=== PATIENT | female | born 1945 | race Caucasian/White ===

== ENCOUNTER → 2016-07-04 | Outpatient (CLI) | payer BC ==
[~2016-07-04] MED LIST: B-COTAB18 PO; CALC625T PO; CHOL1000 PO; METR1GEL3 TOP; WARF2TAB PO
== END | disposition home or self-care (01) ==
LOC: C.RDSM 15:50
PROVIDERS: ATTEND Physical Medicine & Rehabilitation Sports Medicine
DX: Z96.651 Presence of right artificial knee joint (principal)

== ENCOUNTER → 2016-12-11 | Outpatient (CLI) | payer BC ==
--- NOTE | 2016-12-11 15:43 | MAMMOGRAPHY REPORT ---
BILATERAL DIGITAL SCREENING MAMMOGRAM WITH CAD: 12/11/2016 CLINICAL HISTORY: Routine screening examination. TECHNIQUE: Bilateral CC and MLO views were obtained. Current study was also evaluated with a Compute r Aided Detection (CAD) system. COMPARISON: Comparison is made to exams dated: 11/03/2015 mammogram, 10/06/2014 mammogram, 09/16/2013 m ammogram, 09/15/2012 mammogram, 04/01/2012 mammogram, and 08/26/2005 mammogram - [facility] nter. BREAST COMPOSITION: There are scattered areas of fibroglandular density in both breasts. FINDINGS: There is a benign coarse calcification in the left breast. No suspicious mass, architectur al distortion or cluster of microcalcifications is seen. IMPRESSION: ACR BI-RADS CATEGORY 1: NEGATIVE There is no mammographic evidence of malignancy. A 1 year screening mammogram is recommended. The pa tient will receive written notification of the results. Approximately 10% of breast cancers are not detected with mammography. A negative mammographic report should not delay biopsy if a clinically suggestive mass is present. Karolina Molina M.D. ay/:12/11/2016 14:54:11 Aerial Photogrammetrist: Vianey CORDOVA(R)(Sue), [facility] letter sent: Normal 1/2 BI-RADS Code: ACR BI-RADS Category 1: Negative
== END | disposition home or self-care (01) ==
LOC: C.MAMM 09:38
PROVIDERS: ATTEND Family Medicine
DX: Z12.31 Encounter for screening mammogram for malignant neoplasm of breast (principal)

== ENCOUNTER → 2017-05-05 | Outpatient (CLI) | payer BC | END | disposition home or self-care (01) | LOC: C.RDSM 12:11 | PROVIDERS: ATTEND Physical Medicine & Rehabilitation Sports Medicine | DX: Z96.651 Presence of right artificial knee joint (principal); M17.12 Unilateral primary osteoarthritis, left knee ==

== ENCOUNTER → 2017-12-25 | Outpatient (CLI) | payer BC ==
--- NOTE | 2017-12-26 14:35 | MAMMOGRAPHY REPORT ---
BILATERAL DIGITAL SCREENING MAMMOGRAM TOMOSYNTHESIS WITH CAD: 12/25/2017 CLINICAL HISTORY: Routine screening. Patient has no complaints. TECHNIQUE: The study was acquired using full field digital technology and interpreted from soft copy. Breast tomosynthesis in addition to standard 2D mammography was performed. Current study was also ev aluated with a Computer Aided Detection (CAD) system. COMPARISON: Comparison is made to exams dated: 12/11/2016 mammogram, 11/03/2015 mammogram, 10/06/2014 m ammogram, 09/16/2013 mammogram, 04/01/2012 mammogram, and 09/20/2011 ultrasound - [facility]. BREAST COMPOSITION: There are scattered areas of fibroglandular density in both breasts. FINDINGS: No suspicious masses, calcifications, or areas of architectural distortion are noted in either breast . There has been no significant interval change compared to prior exams. IMPRESSION: ACR BI-RADS CATEGORY 1: NEGATIVE There is no mammographic evidence of malignancy. A 1 year screening mammogram is recommended.( 019) The patient will receive written notification of the results. Some breast cancers are not detected with mammography. A negative mammographic report should not dustin y biopsy if a clinically suggestive mass is present. Melanie Willis M.D. ah/:12/25/2017 15:08:20 Bottom Liquor Attendant: Alesia Arzola, [facility] letter sent: Normal 1/2 BI-RADS Code: ACR BI-RADS Category 1: Negative
== END | disposition home or self-care (01) ==
LOC: C.MAMM 08:46
PROVIDERS: ATTEND Family Medicine
DX: Z12.31 Encounter for screening mammogram for malignant neoplasm of breast (principal)

== ENCOUNTER 2018-06-11 06:10 | Inpatient (IN) ==
--- NOTE | 2018-06-01 12:35 | Anesthesiology Consultation ---
Date of Service June 01, 2018 Assessment & Plan (1) Encounter for pre-operative examination: Plan: Preoperative cardiac clearance 05/29/2018: "Based on her functional status without limiting cardiopulmonary symptoms, stable EKG tracing, and the fact that she has had multiple orthopedic surgeries without cardiac complications patient is an acceptable surgical risk to proceed with surgery as scheduled. There is no need for further cardiac workup at this time." PCP Clearance 05/14/18: "Low cardiovascular risk. Will await testing results prior to final clearance." Testing reviewed, final clearance given 06/08/18. Chart Review Chart Review: Acceptable Risk for Surgery and Patient seen in Pre Admission Testing Teaching & Discussion Instructed NPO after midnight before surgery, except medications with 15 cc of water. Medication instructions provided according to the PAT guidelines. History Surgery Operation Date: 06/11/18 12:05 Proposed Procedures p Left Total Knee Arthroplasty - Curt Hall MD Height/Weight Height: 5 ft 5 in Weight: 102.4 kg Allergies Allergy/AdvReac Type Severity Reaction Status Date / Time Sulfa (Sulfonamide Allergy Severe HIVES Verified 05/27/18 08:59 Antibiotics) clavulanic acid Allergy Unknown RASH Verified 05/27/18 08:59 caffeine AdvReac Intermediate PALPITATIONS, Verified 05/27/18 08:59 NUMBNESS IN EXTREMITIES, MIGRANES Medications Home Medications Medication Instructions Recorded Confirmed Last Taken Inhaler 2 puff INHALATION UD PRN 05/27/18 05/27/18 Unknown calcium polycarbophil [FiberCon] 1 tab PO QAM 05/27/18 05/27/18 Unknown cholecalciferol (vitamin D3) 2,000 unit PO QAM 05/27/18 05/27/18 Unknown [Vitamin D3] diclofenac sodium [Voltaren] 2 g TOPICAL QID PRN 05/27/18 05/27/18 Unknown metronidazole [Metrogel Vaginal] 1 appful VAGINAL BID PRN 05/27/18 05/27/18 Unknown vitamin B complex 1 tab PO QAM 05/27/18 05/27/18 Unknown Past Medical History Medical History Asthma RARELY USES INHALER. HAS NOT USED FOR ~ 5 MONTHS. Hypertriglyceridemia Migraine Nausea and vomiting after administration of anesthetic agent single episode, also strong family hx Obesity Osteoarthritis Past Family History Family History Father Family hx of colon cancer Past Surgical History Surgical History H/O hand surgery RIGHT HAND FINGER JOINT REPLACEMENT History of cataract surgery R/L History of hysterectomy TOTAL BSO History of total hip arthroplasty R/L History of total knee replacement RIGHT Past Anesthesia History No Hx of Anesthesia Complications -- Daughter has h/o hallucinations with anesthesia. -- 2015 TKA--SAB AND PNB WITHOUT ANY ISSUES. History of PONV Yes (none iwth R TKA) Motion Sickness Screening History of Motion Sickness: No Social History Smoking Status: Never smoker Do You Dip or Chew Tobacco: No Hx Alcohol Use: Yes Alcohol type: beer and wine alcohol intake frequency: 0-2 drinks per day (up to 2, sometimes none) Hx Substance Use: No Exercise / Class Metabolic Activity III < 4 Walking/Shop/Light housework (no CP or SOB with stairs but very limited activity lately 2/2 knee pain) Review of Systems Pt denies any recent chest pain, shortness of breath, palpitations, cough, fever or URI. Physical Exam Vital Signs BP: 135/82 (saw cardio 05/29, had similar BP and no changes were made) P: 58bpm SPO2: 97% RA T: 97.7 F R: 18 ENMT Mouth: + dental restorations (crowns/implants on few molars); no chipped teeth and no loose teeth Thyromental Distance: > or= 3.5 Finger Breadths (4) Mallampati Class: I Neck normal visual inspection; neck extension not limited Respiratory normal respiratory effort Auscultation: lungs clear to auscultation bilaterally Cardiovascular Rate/Rhythm: regular rate and regular rhythm Heart Sounds: no murmur Vessels: no carotid bruit Extremities: no edema Testing Electrocardiogram Date: 05/29/18 Findings: + NSR @ (63) Compared to 08/04/15 tracing, PACs are no longer present. Chest X-Ray Date: 06/01/18 Findings: + NAD Laboratory Results 06/01/18 13:13 06/01/18 13:13 Blood Type O Positive 06/01/18 13:13 Antibody Screen NEGATIVE 06/01/18 13:13 PT 10.4 Seconds (9.0-12.0) 06/01/18 13:13 INR 1.0 (0.9-1.1) 06/01/18 13:13 APTT 26.8 Seconds (21.0-31.0) 06/01/18 13:13 Urine Color Yellow 06/01/18 13:13 Urine Appearance Clear (Clear) 06/01/18 13:13 Urine pH 5.5 (4.5-7.5) 06/01/18 13:13 Ur Specific [place] 1.005 (1.000-1.030) 06/01/18 13:13 Urine Protein Negative (Negative) 06/01/18 13:13 Urine Glucose (UA) Negative (Negative) 06/01/18 13:13 Urine Ketones Negative (Negative) 06/01/18 13:13 Urine Nitrite Negative (Negative) 06/01/18 13:13 Ur Leukocyte Esterase Negative (Negative) 06/01/18 13:13 06/01/18 13:13 Urine Culture - Final Urine,Clean Catch More than three types of organisms present, all high counts mixed probable skin antonio - No further identifications or sensitivities to follow.
--- NOTE | 2018-06-01 12:45 | PAT Medication Instructions ---
Medication Instructions Date of Service June 01, 2018 Home Medications Inhaler 2 puff INHALATION UD PRN calcium polycarbophil [FiberCon] 1 tab PO QAM cholecalciferol (vitamin D3) 2,000 unit PO QAM diclofenac sodium [Voltaren] 2 g TOPICAL QID PRN metronidazole [Metrogel Vaginal] 1 appful VAGINAL BID PRN vitamin B complex 1 tab PO QAM STOP taking 24 hours before surgery diclofenac sodium [Voltaren] 2 g TOPICAL QID PRN metronidazole [Metrogel Vaginal] 1 appful VAGINAL BID PRN DO NOT take the morning of surgery calcium polycarbophil [FiberCon] 1 tab PO QAM cholecalciferol (vitamin D3) 2,000 unit PO QAM vitamin B complex 1 tab PO QAM Take morning of surgery With a small sip of water, OTHERWISE NOTHING TO EAT OR DRINK AFTER MIDNIGHT: Inhaler 2 puff INHALATION UD PRN ( (if needed, and bring with you to the hospital) Take evening before surgery Inhaler 2 puff INHALATION UD PRN (if needed) Other Notes If you have any questions please call us at [phone] or [phone] or [phone] or [phone]
--- NOTE | 2018-06-01 13:37 | XRay Report ---
TWO VIEW CHEST CLINICAL HISTORY: Preoperative examination. FINDINGS: PA and lateral chest radiographs are compared to study dated 08/04/2015. The cardiomediastin al silhouette is unremarkable. There is mild bibasilar atelectasis. The lungs and pleural spaces are otherwise clear. There is no pneumothorax. The skeletal structures are osteopenic. Degenerative post e is noted throughout the thoracic spine. The bony thorax appears intact. IMPRESSION: No active disease in the chest. Electronically signed by: Reece Vail M.D. 06/01/2018 1:36 PM
[2018-06-01 13:42] LABS: Basophils # (auto) 0.02 K/uL (0-0.2); Basophils % (auto) 0.3 %; Eosinophils # (auto) 0.12 K/uL (0-0.5); Eosinophils % (auto) 1.8 %; Hematocrit (blood only) 44.4 % (37-47); Hemoglobin 14.1 g/dL (12.0-16.0); Immature Granulocytes # (auto) 0.01 K/uL (0.00-0.02); Immature Granulocytes % (auto) 0.1 %; Lymphocytes # (auto) 2.38 K/uL (1.2-3.4); Lymphocytes % (auto) 35.7 %; Mean Corpuscular Hgb Conc 31.8 g/dL (32-36); Mean Corpuscular Volume 92.3 fL (80-100); Mean Platelet Volume 9.7 fL (7.4-10.4); Monocytes # (auto) 0.41 K/uL (0.11-0.59); Monocytes % (auto) 6.1 %; Neutrophils # (auto) 3.73 K/uL (1.4-6.5); Platelet Count 220 K/uL (130-400); RDW Coefficient of Variation 13.6 % (11.5-14.5); RDW Standard Deviation 45.9 fL (36.4-46.3); Red Blood Count 4.81 M/uL (4.2-5.4); White Blood Count 6.67 K/uL (4.8-10.8)
[2018-06-01 13:51] LABS: Appearance Urine Clear (Clear); Bilirubin Urine Negative (Negative); Color Urine Yellow; Glucose Urine UA Negative (Negative); Ketones Urine Negative (Negative); Leukocyte Esterase Urine Negative (Negative); Nitrite Urine Negative (Negative); Protein Urine Negative (Negative); Specific Gravity Urine 1.005 (1.000-1.030); Urobilinogen Urine Negative (Negative); pH Urine 5.5 (4.5-7.5)
[2018-06-01 13:54] LABS: Partial Thromboplastin Time 26.8 Seconds (21.0-31.0); Prothrombin Time 10.4 Seconds (9.0-12.0)
[2018-06-01 14:36] LABS: BUN Creatinine Ratio 14.7 (10-20); Calcium 8.9 mg/dl (8.5-10.1); Creatinine Clr Calc Pharmacy 66.8 ml/min; Est GFR (African American) 74.5; Est GFR (Non-African American) 64.3; Potassium 3.9 mmol/L (3.5-5.1)
--- NOTE | 2018-06-04 11:22 | History and Physical Report ---
DATE OF ADMISSION: 06/11/2018 DATE OF SURGERY: 06/11/2018. CHIEF COMPLAINT: Left knee pain. HISTORY OF PRESENT ILLNESS: This 72-year-old white female presents to the office with a longstanding history of left knee pain. Pain has become worse with time. It is affecting her ADLs. It is worse with weightbearing. She has tried activity modification as well as oral medication use without improvement. She previously had a right total knee arthroplasty in 2016 and has done well with that. She elects to proceed with the same on the left. No numbness or tingling. Preoperative imaging has been obtained. PAST MEDICAL HISTORY: Significant for obesity, osteoarthritis, migraine headaches, elevated triglycerides, reactive airways disease, and rosacea. PAST SURGICAL HISTORY: Carpal tunnel release, colonoscopy, cataract surgery, abdominal hysterectomy with oophorectomy, right thumb basal joint reconstruction, right knee TKA 08/16/2015, right total hip replacement in 2009, left total hip replacement in 2010. ALLERGIES: KNOWN ALLERGY TO SULFA AND CAFFEINE. AUGMENTIN CAUSES A RASH. She tolerates amoxicillin well. CURRENT MEDICATIONS: Albuterol inhaler 2 puffs q.i.d. p.r.n., multivitamin daily, FiberCon daily, Vitamin D3 daily. SOCIAL HISTORY: The patient is . No tobacco use, daily ETOH use. FAMILY HISTORY: Significant for arthritis, heart disease, cancer, colon cancer, hypertension and osteoarthritis. REVIEW OF SYSTEMS: Total 10 systems were reviewed and are significant only for above stated conditions. PHYSICAL EXAMINATION: GENERAL: Well-developed, well-nourished elderly white female in no acute distress. Sitting in a chair. Alert and oriented. SKIN: Warm and dry with good turgor. No rashes or lesions. No ecchymosis. Mild rosacea on her face. HEENT: Normocephalic, atraumatic. Eyes PERRLA, EOMI. Nares patent bilaterally without turbinate enlargement. Oropharynx without erythema or exudate. No lesions noted. Uvula midline. Oral mucosa moist. Good dentition. Dental caps are noted. HEART: RRR. No MGR. LUNGS: Clear to auscultation bilaterally. No crackles, rhonchi or wheezing. Good air movement. ABDOMEN: Mildly obese. Bowel sounds present x4, soft, nontender. No organomegaly. No masses. MUSCULOSKELETAL: Left knee evaluation reveals no significant intra-articular effusion. No redness or warmth. She has pain with palpation over the medial and lateral joint lines. Medial was worse. Supple motion of the knee. Full terminal extension. Flexion to greater than 100 degrees. Strength is 5/5 with fair quad tone. Stable collateral ligaments. No defect in the patellar tendon or quadriceps tendon. Ambulatory with an antalgic gait. NEUROLOGIC: Gross sensation is intact across the lower extremities by soft touch. Peripheral pulses are 2+. Cranial nerves II-XII are intact. DATA: Radiographic imaging previously obtained shows end-stage DJD of the left knee. Periarticular osteophytes, subchondral sclerosis, and joint space narrowing are all present. IMPRESSION: Left knee end-stage degenerative joint disease. PLAN: Informed written consent to proceed with total knee arthroplasty will be obtained the morning of surgery. Postoperative prescriptions for Coumadin and Percocet will be provided at discharge from the hospital. Anticipate discharge to home with either outpatient services or home health. The patient states she has a difficult time with lab draws and may do better with a normal lab rather than home health. The patient has already seen her PCP for medical clearance. She also has seen her cardiology group. Preoperative lab work, EKG, and chest x-ray have been ordered. She already has a walker.
[~2018-06-11 06:10] MED LIST changes: -B-COTAB18 PO; -CALC625T PO; +CEFAZOLIN 2000MG 2,000 MG/15 ML SYR IV SCH; -CHOL1000 PO; +LR 60ML/HR IV SCH; -METR1GEL3 TOP; +ROPIVACAINE 0.5% HCL/PF 150 MG, BUPIVACAINE 0.5% MPF 30 ML, EPINEPHrine 0.15 MG, Ketoro... INFIL SCH; +TRANEXAMIC ACID 1,000 MG **IV Pre-op IV SCH; -WARF2TAB PO
--- NOTE | 2018-06-11 06:21 | History & Physical Bridge Note ---
Date of Service June 11, 2018 History & Physical Bridge Note I have examined the patient, reviewed the History & Physical and in the interval since the performance of the History & Physical I have noted the following changes of clinical significance:consent obtained. no changes noted
[2018-06-11] MEDS: LR 500ML BOLUS, THEN 15ML/HR IV SCH ×3 (07:06→17:41)
[2018-06-11] MEDS ORDERED: BUPIVACAINE 0.5 % 5 MG/1 ML PF 10ML VIAL ONE (07:21)
[2018-06-11] MEDS ORDERED: ROPIVACAINE 0.5% 5 MG/ML 30 ML VIAL ONE (07:21)
[2018-06-11] MEDS ORDERED: MIDAZOLAM HCL 1 MG/ML 2ML VIAL ONE ×2 (07:40→09:05)
[2018-06-11] MEDS ORDERED: fentaNYL citrate 100 MCG/2 ML VIAL ONE (07:40)
[2018-06-11] MEDS ORDERED: PROPOFOL IV EMULSION 10 MG/ML 20 ML VIAL IV ONE ×2 (07:45→09:46)
[2018-06-11] MEDS ORDERED: LIDOCAINE HCL 2% 2 ML VIAL/AMP(20MG/ML) INFIL ONE (07:45)
[2018-06-11] MEDS ORDERED: POVIDONE-IODINE OP SOLN 30 ML BTL ONE (08:44)
[2018-06-11] MEDS ORDERED: ORTHO JOINT ANESTHETIC ONE (08:44)
[2018-06-11] MEDS ORDERED: ePHEDrine sulfate 50 MG/ML AMP IV PRN (09:33)
[2018-06-11] MEDS ORDERED: ONDANSETRON INJ 2 MG/ML 2 ML VIAL IV PRN ×2 (09:33→12:34)
[2018-06-11] MEDS ORDERED: fentaNYL citrate 100 MCG/2 ML VIAL IV PRN (09:33)
[2018-06-11] MEDS ORDERED: ATROPINE SULFATE 0.1 MG/ML 10ML SYR IV PRN (09:33)
--- NOTE | 2018-06-11 10:25 | Post Operative Brief Note ---
Immediate Post Op Note v1 Date of Surgery June 11, 2018 Pre & Post Diagnosis Operation Date: 06/11/18 09:05 Pre-Op Diagnosis: Left knee end-stage degenerative joint disease Post-Op Diagnosis: Left knee end-stage degenerative joint disease Procedure Operation Date: 06/11/18 09:05 Actual Procedures p Left Total Knee Arthroplasty(Left) - Curt Hall MD Surgeon Curt Hall MD Manager People [facility] Estimated Blood Loss 75 Findings Consistent with Post-Op Diagnosis
--- NOTE | 2018-06-11 10:48 | Operative Report ---
Post Operative Report Pre & Post Diagnosis Operation Date: 06/11/18 09:05 Pre-Op Diagnosis: Left knee end-stage degenerative joint disease Post-Op Diagnosis: Left knee end-stage degenerative joint disease Procedure Operation Date: 06/11/18 09:05 Actual Procedures p Left Total Knee Arthroplasty(Left) - Curt Hall MD Surgeon LINDA Hall MD Per Diem Clerk semabel Estimated Blood Loss 75 Findings Consistent with Post-Op Diagnosis Specimens See operative report Drains None Complications none Disposition Accompanied Patient To Recovery: Yes Disposition: Recovery Room Indications This 72-year-old white female presented to the office with complaints of intractable left knee pain. She had tried conservative care measures including activity modification, oral anti-inflammatories, injection therapy, and a home exercise program, without lasting relief. She elected to proceed with surgical intervention after being educated about potential risks and outcomes. Preoperative imaging was obtained. Description of Procedure Patient was administered a spinal anesthetic and then taken to the operating room where she was given sedation. She was prepped and draped in the usual sterile fashion. Please see Dr. Hall's operative report for specifics of the procedure. I was present for the entire case from initial patient positioning through final wound closure. Assistance was provided in tissue retraction, hemostasis, trial implant placement, final implant placement, and final wound closure. Patient was taken to the recovery room in satisfactory condition. I attest to the content of the Intraoperative Record and any orders documented therein. Any exceptions are noted below.
--- NOTE | 2018-06-11 10:50 | Operative Report ---
DATE OF OPERATION: 06/11/2018 SURGEON: Curt Hall MD. AUTOMOBILE RACER: Tommy Roa PA-C. No resident or fellow available. PREOPERATIVE DIAGNOSIS: Osteoarthritis with varus fixed flexion deformity, left knee. POSTOPERATIVE DIAGNOSIS: Osteoarthritis with varus fixed flexion deformity, left knee. OPERATION PERFORMED: Cemented left total knee replacement. SUMMARY OF IMPLANTS: Size 3 posterior cruciate substituting femur, size 2-1/2 mobile bearing tray, oval dome 3 peg patella size 41, tibial insert size 3 matching the femur x10 mm thick posterior cruciate substituting, 2 bags of Palacos G cement. ESTIMATED BLOOD LOSS: 75 mL. CRYSTALLOID: Per anesthesia. PATHOLOGY: Pending on bone. PROPHYLAXIS: DVT prophylaxis with Coumadin. PERIOPERATIVE SITUATION: Medically cleared female with intractable knee pain with significant x-ray deformity with varus and flexion deformity, has marked joint space narrowing medially with marked osteophyte formation. DESCRIPTION OF PROCEDURE: Patient was appropriately identified, site verified, consent verified. Antibiotics confirmed as being given. The left lower extremity was prepped and draped in the usual routine fashion. Tourniquet inflated to 300 mmHg after exsanguination of the limb with a rubber Esmarch bandage for a total of approximately 50 minutes. Midline exposure utilized. Parapatellar arthrotomy performed. Synovectomy completed. Osteophytes resected. Soft tissue releases performed. Distal femur resected 14 mm, proximal tibia resected 4 mm, the extension gap was excellent. The femur was sized to between a 4 and a 3, was measured 4, cut 3. There was no notching. The posterior capsule was then injected with 2 syringes of Orthomix. The extension gap was excellent. The flexion gap was excellent. A box cut was then made and the size 3 femur fit well. The tibia was then subluxated and was then broached and reamed for size 2-1/2. A size 3 spacer 10 mm thick allowed full extension, full flexion, and good mid range stability in flexion. Patella tracked well. The patella was resected leaving about 16 mm. A 41 dome fit well. The seating holes made and the trial tracked well. The rest of the Orthomix was then injected about the capsule and the incision. The wound was irrigated with Betadine and Pulsavac. All trial implants were removed prior to this and then the permanent cemented into position. After 12 minutes, the tourniquet deflated. After 14 minutes, the knee flexed. No cement removal was required. The knee was then irrigated with the Pulsavac and Betadine and the permanent liner seated. The knee reduced. Patella tracked well. It was then closed with #2 Vicryl, #1 Vicryl for the capsule layer, 2-0 Vicryl for the subcutaneous layer, and stainless steel clips for skin. Appropriate dressing applied, and patient transferred to recovery room in satisfactory condition having tolerated the procedure well. I attest to the content of the Intraoperative Record and any orders documented therein. Any exception s are noted below.
--- NOTE | 2018-06-11 11:18 | XRay Report ---
XR knee LT 2V routine CLINICAL HISTORY: Degenerative arthritis. Postoperative study. COMPARISON: 02/12/2015 DISCUSSION: There are postsurgical changes of a total left knee arthroplasty and patellar resurfacing . The femoral and tibial components appear well seated. There are overlying skin lolita. There is ai r within soft tissues consistent with recent surgery. IMPRESSION: Postsurgical changes of a total left knee arthroplasty. Electronically signed by: David Valentino M.D. 06/11/2018 11:17 AM
--- NOTE | 2018-06-11 11:23 | Anesthesiology Progress Note ---
Date of Service June 11, 2018 Anesthesia Post Procedure Vital Signs Vital Signs: Temp Pulse Pulse Resp BP Pulse Ox 06/11/18 11:15 58 L 17 123/68 97 06/11/18 11:05 58 L 15 127/67 98 06/11/18 10:55 60 19 133/77 100 06/11/18 10:45 64 20 132/75 100 06/11/18 10:35 68 20 128/71 100 06/11/18 10:29 98.4 F 78 15 112/64 98 06/11/18 06:45 98.2 F 65 20 144/85 H 96 Notes Mental Status: alert / awake / arousable and participated in evaluation Patient Amnestic to Procedure: Yes Nausea / Vomiting: adequately controlled Pain: adequately controlled Airway Patency, RR, SpO2: stable & adequate BP & HR: stable & adequate Hydration State: stable & adequate Neuraxial Anesthesia: was administered and sensory block is resolving Anesthetic Complications: no major complications apparent and Pt Satisfied with anesthetic care
[2018-06-11] MEDS ORDERED: SODIUM CHLORIDE 0.9% 1000ML 1,000 ML IV SCH (12:34)
[2018-06-11] MEDS ORDERED: DiphenhydrAMINE HCL 50 MG/ML VIAL IV PRN (12:34)
[2018-06-11] MEDS ORDERED: HYDROmorphone INJ 0.5 MG/0.5 ML SYR IV PRN (12:34)
[2018-06-11] MEDS ORDERED: BISACODYL 10 MG SUPP PR PRN (12:34)
[2018-06-11] MEDS ORDERED: OXYCODONE HCL IR 5 MG TAB (IMMEDIATE RELEASE) PO PRN (12:34)
[2018-06-11] MEDS ORDERED: METOCLOPRAMIDE HCL INJ 5 MG/ML 2 ML VIAL IV PRN (12:34)
[2018-06-11] MEDS ORDERED: MAGNESIUM HYDROXIDE SUSP 30 ML UDC PO PRN (12:34)
[2018-06-11] MEDS ORDERED: NALOXONE HCL 0.4 MG/1 ML VIAL/CARP IV PRN (12:34)
[2018-06-11] MEDS ORDERED: ALUMINUM/MAGNESIUM SUSP 30 ML UDC PO PRN (12:34)
[2018-06-11] MEDS ORDERED: KETOROLAC TROMETHAMINE 15 MG/ML VIAL IV PRN (12:34)
[2018-06-11] MEDS: ORTHO WARFARIN NOMOGRAM SCH (12:58)
[2018-06-11] MEDS: ACETAMINOPHEN 1,000 MG/100 ML VIAL IV SCH ×2 (13:36→21:49)
--- NOTE | 2018-06-11 13:45 | Progress Note ---
DATE: 06/11/2018 Postop check status post left total knee replacement. Patient is doing well. Denies any chest pain, shortness of breath, fever, chills, nausea, vomiting, headache. Vital signs are stable. She is afebrile. On neurovascular check, is coming back from her block. She is wiggling her toes well. She gets femoral nerve function. She is eating and drinking. Denies any abdominal pain, no nausea or vomiting. Wound dressing clean, dry, and intact. Postop x-rays look excellent. ASSESSMENT: Doing well. Continue with care pathway. Hep-Lock, IV fluid. Mobilize when spinal block worn off.
[2018-06-11] MEDS ORDERED: WARFARIN SOD 5 MG TAB PO ONE (16:00)
[2018-06-11] MEDS ORDERED: TRANEXAMIC ACID 1,000 MG in 0.9 % SODIUM CHLORIDE 100 ML IV SCH (16:30)
[2018-06-11] MEDS: CEFAZOLIN 2000MG 2,000 MG/15 ML SYR IV SCH ×2 (16:48→23:23)
[2018-06-11] MEDS: FERROUS GLUCONATE 324 MG TAB PO SCH (16:51)
[2018-06-11] MEDS: DOCUSATE SODIUM 100 MG CAP PO SCH (20:45)
[2018-06-11] MEDS ORDERED: SENNA 8.6 MG TAB PO SCH (21:00)
[2018-06-12] MEDS: ACETAMINOPHEN 1,000 MG/100 ML VIAL IV SCH (05:37)
[2018-06-12 06:18] LABS: Hematocrit (blood only) 38.7 % (37-47); Hemoglobin 12.6 g/dL (12.0-16.0); Mean Corpuscular Hgb Conc 32.6 g/dL (32-36); Mean Corpuscular Volume 90.8 fL (80-100); Mean Platelet Volume 10.1 fL (7.4-10.4); Platelet Count 186 K/uL (130-400); RDW Coefficient of Variation 13.3 % (11.5-14.5); Red Blood Count 4.26 M/uL (4.2-5.4); White Blood Count 10.65 K/uL (4.8-10.8)
[2018-06-12 06:29] LABS: INR 1.1 (0.9-1.1); Prothrombin Time 10.7 Seconds (9.0-12.0)
[2018-06-12 06:52] LABS: Est GFR (African American) 82.3; Potassium 4.2 mmol/L (3.5-5.1)
[2018-06-12 06:53] LABS: BUN Creatinine Ratio 19.3 (10-20); Calcium 8.4 mg/dl (8.5-10.1); Creatinine Clr Calc Pharmacy 71.9 ml/min
[2018-06-12] MEDS: DOCUSATE SODIUM 100 MG CAP PO SCH (07:21)
[2018-06-12] MEDS: FERROUS GLUCONATE 324 MG TAB PO SCH (07:21)
--- NOTE | 2018-06-12 07:22 | Progress Note ---
DATE: 06/12/2018 SUBJECTIVE: Postop day #1 status post left total knee replacement. The patient is doing well, has no issues. Vital signs are stable. She is afebrile. OBJECTIVE: Neurovascular check femoral sciatic nerve is normal. Wound dressing clean, dry and intact. INR is 1.1. Hematocrit is stable. ASSESSMENT: Doing well. Discharge to home today. Case management involved. Discharge on 4 mg of Coumadin.
[2018-06-12] MEDS ORDERED: dexAMETHasone 10 MG in SYRINGE 0 ML IV SCH (08:00)
[2018-06-12] MEDS: ORTHO WARFARIN NOMOGRAM SCH (08:23)
[2018-06-12] MEDS ORDERED: MULTIVITAMIN TAB PO SCH (09:00)
--- NOTE | 2018-06-12 09:43 | Discharge Summary ---
CHIEF COMPLAINT: Left knee pain. HISTORY OF PRESENT ILLNESS: Admitted for elective left total knee replacement. Hospital course has been uneventful. She is ambulatory, eating, drinking, voiding. PAST MEDICAL HISTORY: Remarkable for osteoarthritis, obesity, migraine headaches, elevated triglycerides, rosacea, reactive airway disease. PAST SURGICAL HISTORY: Remarkable for carpal tunnel, colonoscopy, cataract surgery, hysterectomy, oophorectomy, nasal joint reconstruction, right knee replacement in 2015, right total hip replacement in 2009, left total hip replacement in 2010. ALLERGIES: SULFA AND CAFFEINE. AUGMENTIN CAUSES RASH. PREADMISSION MEDICATIONS: Include albuterol, multivitamin, FiberCon, vitamin D. She will add Coumadin. Keep INR 1.8-2.2 and p.r.n. pain medication. See prescription on pain medication. SOCIAL HISTORY: Reveals she is . No tobacco or alcohol use. FAMILY HISTORY: Noncontributory. Has a history of cancer, hypertension, heart disease. REVIEW OF SYSTEMS: Noncontributory. ASSESSMENT AND PLAN: Doing well, status post left total knee replacement. Discharged home today. Case management involved, 4 mg Coumadin, keep INR 1.8-2.2.
--- NOTE | 2018-06-12 10:06 | Orthopedic Progress Note ---
Date of Service June 12, 2018 Assessment & Plan (1) Status post total left knee replacement: PT/OT this AM Plan on discharge later today Outpatient PT DVT prophylaxis with Coumadin and TEDs Goal INR 1.8-2.2 Ice with EZ wrap Immobilizer for 1st 48 hrs post op WBAT with walker assistance Pain control with PO meds F/u at [facility] in 2 wks for staple removal Subjective Patient is day 1 s/p Left total knee arthroplasty. Doing very well. Ready to be discharged home. Dressing clean, dry and intact. pain well controlled with PO meds. Denies CP, SOB, nausea, vomiting, fever, chills or sweat. Physical Exam 2 Vital Signs (Past 24 Hours): Last Vital Signs Temp 36.5 C 06/12/18 09:55 Pulse 74 06/12/18 09:55 Resp 18 06/12/18 09:55 BP 110/72 06/12/18 09:55 Pulse Ox 95 06/12/18 09:55 Physical Exam: Left Knee: Able to depict light sensation to touch circumferentially around incision. Slight numbness along tibialis anterior distribution. Mild edema. No erythema, ecchymosis, warmth, fluctuance noted. [place] intact w/o drainage. Able to easliy perform SLRT. No referred pain with dorsi/plantar flexion. Calf soft and supple. NV intact in Left LE. Periph pulses easily palpable. Cap refill < 2 seconds.
[2018-06-12] MEDS ORDERED: ACETAMINOPHEN 500 MG TAB PO SCH (14:00)
[2018-06-12] MEDS ORDERED: WARFARIN SOD 5 MG TAB PO SCH ×2 (16:00)
== END 2018-06-12 13:14 | disposition home or self-care (01) | DRG 470 ==
LOC: ASU 06:10 → 3E 10:47

== ENCOUNTER 2023-12-15 15:57 | Observation (INO) ==
[2023-12-15] MEDS: cefTRIAXone SODIUM 2,000 MG/50 ML BAG IV STA (16:08)
--- NOTE | 2023-12-15 16:17 | Emergency Department Note ---
History of Present Illness General Chief Complaint: Referred by Doctor Stated Complaint: ACUTE APPENDICITIS Time Seen by Provider: 12/15/23 16:03 History of Present Illness Provider Complaint: + abnormal lab Returns today for: + called because of abnormal lab/test Description of abnormal result: Abnormal CT abdomen pelvis showing acute appendicitis Context: + called for abnormal lab result Associated symptoms: + fever (Subjective), + chills and + abdominal pain (Began on located in the right lower quadrant) Home Medications Medication Instructions Recorded Confirmed Type calcium polycarbophil 625 mg 1 tab PO QAM 05/27/18 12/15/23 History tablet (FiberCon) cholecalciferol (vitamin D3) 50 2,000 unit PO QAM 05/27/18 12/15/23 History mcg (2,000 unit) capsule (Vitamin D3) vitamin B complex 1 tab PO QAM 05/27/18 12/15/23 History albuterol sulfate 90 mcg/actuation 2 puff inhalation QID PRN 12/15/23 12/15/23 History aerosol inhaler Shortness Of Breath Or Wheezing Allergies Allergy/AdvReac Type Severity Reaction Status Date / Time clavulanic acid Allergy Intermediate RASH Verified 12/15/23 17:09 Sulfa (Sulfonamide Allergy Intermediate HIVES Verified 12/15/23 17:09 Antibiotics) caffeine AdvReac Intermediate PALPITATIONS, Verified 12/15/23 17:09 NUMBNESS IN EXTREMITIES, MIGRANES [id number] Reductase AdvReac Muscle Verified 12/15/23 17:10 Inhibitor aches, rash, cough Past Med/Surg History Problem List (Updated 12/15/23 @ 22:39 by Christian Lauren MD) Acute appendicitis (Acute) 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 HAS NOT USED FOR ~ 5 MONTHS. Surgical History Nausea and vomiting after administration of anesthetic agent single episode, also strong family hx History of cataract surgery R/L History of hysterectomy TOTAL BSO History of total hip arthroplasty R/L History of total knee replacement RIGHT H/O hand surgery RIGHT HAND FINGER JOINT REPLACEMENT Family History Father Family hx of colon cancer Social History Smoking Status: Never smoker Second Hand Exposure: No; Do You Dip or Chew Tobacco: No; Hx Alcohol Use: Yes Alcohol type: beer and wine Hx Substance Use: No Preferred Language: Paraguayan Communication Ability: Effective Visual Impairment: No Limitations Analytics Consultant Required: No Beliefs That Will Affect Care: None marital status: Current Living Situation: Spouse Feels Safe at Home: Yes Assistive Devices: Walker Physical Exam 2 Vital Signs: Vital Signs - 24 hr 12/15/23 16:00 12/15/23 16:51 12/15/23 17:40 Temperature 36.2 C L 36.9 C Temperature Source Temporal Artery Sc an Oral Pulse Rate 75 Pulse Rate [Apical ] 69 Pulse Rhythm Regular Pulse Rhythm [Apic al] Pulse Strength Normal Respiratory Rate 8 L 18 Respiratory Effort / Characteristics Non-Labored Non-Labored Sponta neous Respiratory Depth Normal Normal Respiratory Patter n Regular Regular Blood Pressure 163/111 H Blood Pressure [Le ft Arm] 148/89 H Blood Pressure Pippa n 128 Blood Pressure Pippa n [Left Arm] 108 Blood Pressure Pos ition Sitting Blood Pressure Pos ition [Left Arm] Semi-fowlers Pulse Oximetry 93 96 95 Oxygen Delivery Me thod Room Air Room Air Room Air Oxygen Flow Rate Sepsis Recent Feve r Within 48 Hours No Sepsis New/Unexpla ined Change in Men rojelio Status No Sepsis Action Take n by Nursing No Action Required 12/15/23 19:29 12/15/23 19:35 Temperature 36.1 C L Temperature Source Temporal Artery Sc an Pulse Rate Pulse Rate [Apical ] 67 66 Pulse Rhythm Pulse Rhythm [Apic al] Regular Regular Pulse Strength Respiratory Rate 21 17 Respiratory Effort / Characteristics Non-Labored Sponta neous Non-Labored Sponta neous Respiratory Depth Normal Normal Respiratory Patter n Regular Regular Blood Pressure Blood Pressure [Le ft Arm] 145/75 H 146/95 H Blood Pressure Pippa n Blood Pressure Pippa n [Left Arm] 98 112 Blood Pressure Pos ition Blood Pressure Pos ition [Left Arm] Lying Lying Pulse Oximetry 94 95 Oxygen Delivery Me thod Oxymask Oxymask Oxygen Flow Rate 4 4 Sepsis Recent Feve r Within 48 Hours Sepsis New/Unexpla ined Change in Men rojelio Status Sepsis Action Take n by Nursing Physical Exam: Physical Exam GENERAL: oriented to person, place, and time. appears well-developed and well- nourished. HENT: Exam performed. - Head: Normocephalic and atraumatic. EYES: Conjunctivae and EOM are normal. Right eye exhibits no discharge. Left eye exhibits no discharge. No scleral icterus. NECK: Normal range of motion. Neck supple. No JVD present. CV: Normal rate, regular rhythm, normal heart sounds and intact distal pulses. There is no peripheral edema. Palpable radial pulses bue. PULM/CHEST: Effort normal and breath sounds normal. No respiratory distress. No stridor. no wheezes. no rales. ABD: The abdomen is soft. There is tenderness to palpation of the right lower quadrant. No rebound guarding or rigidity. NEURO: Motor and sensation grossly intact. SKIN: Skin is warm and dry. He is not diaphoretic. PSYCH: normal mood and affect. Behavior is normal. Judgment and thought content normal. Course Course 1603: The patient was evaluated in room C12. A complete history and physical exam was performed Administered Medications Discontinued Medications Bupivacaine HCl/Epinephrine Bitart (Bupivacaine/Epinephrine 0.5% Mpf 1:200,000 30 Ml Vial) Confirm Administered Dose 30 ml .ROUTE .STK-MED ONE Stop: 12/15/23 17:15 Last Admin: 12/15/23 19:06 Dose: 30 ml Documented By: SAMANTHA Ceftriaxone Sodium (Rocephin) 2,000 mg in 50 mls @ 100 mls/hr IV NOW STA Stop: 12/15/23 16:33 Last Infusion: 12/15/23 16:56 Dose: Infused Documented By: Admin: 12/15/23 16:08 Dose: 100 mls/hr Documented By: DONNY Metronidazole (Flagyl) 500 mg in 100 mls @ 100 mls/hr IV NOW STA Stop: 12/15/23 17:03 Last Infusion: 12/15/23 17:52 Dose: Infused Documented By: Admin: 12/15/23 16:38 Dose: 100 mls/hr Documented By: DONNY Piperacillin Sod/Tazobactam (Sod 4.5 gm/ Dextrose) 100 mls @ 200 mls/hr IV NOW ONE; Protocol Stop: 12/15/23 21:14 Last Admin: 12/15/23 21:31 Dose: 200 mls/hr Documented By: BILL Medical Decision Making Medical Records Attestation: I reviewed the patient's medical records. External medical records reviewed. CT of the abdomen pelvis conducted earlier today showed: IMPRESSION: 1. Thickening and an irregular appearance to the tip the appendix with mild periappendiceal fat stranding. These findings are concerning for an early acute appendicitis. Surgical consultation recommended. 2. There is a punctate focus of eccentric gas at the tip the appendix which is likely intraluminal. A small focus of microperforation is considered less likely but not entirely excluded. No evidence for periappendiceal abscess. 3. Cholelithiasis. No gallbladder wall thickening. Laboratory Data Attestation: I reviewed the patient's lab results. 12/15/23 16:52 12/15/23 16:52 Lab Results 12/15/23 Range/Units 16:52 WBC 5.66 (4.8-10.8) K/ul RBC 5.10 (4.20-5.40) M/uL Hgb 14.6 (12.0-16.0) g/dl Hct 45.7 (37.0-47.0) % MCV 89.6 (80.0-100.0) fL MCH 28.6 (25.0-34.0) pg MCHC 31.9 L (32.0-36.0) g/dL RDW Std Deviation 43.3 (36.4-46.3) fL RDW Coeff of Michelle 13.1 (11.5-14.5) % Plt Count 241 (130-400) K/uL MPV 9.4 (9.4-12.4) fL Immature Gran % (Auto) 0.2 % Neut % (Auto) 64.2 % Lymph % (Auto) 24.6 % [place] % (Auto) 8.1 % Eos % (Auto) 2.5 % Baso % (Auto) 0.4 % Neut # (Auto) 3.64 (1.40-6.50) K/uL Lymph # (Auto) 1.39 (1.20-3.40) K/uL [place] # (Auto) 0.46 (0.11-0.59) K/uL Eos # (Auto) 0.14 (0.00-0.50) K/uL Baso # (Auto) 0.02 (0.00-0.20) K/uL Immature Gran # (Auto) 0.01 (0.01-0.20) K/uL PT 10.6 (9.0-12.0) Seconds INR 1.0 (0.9-1.1) APTT 27 (21-31) Seconds PTT Ratio 1.0 Sodium 134 L (136-145) mmol/L Potassium 4.0 (3.5-5.1) mmol/L Chloride 100 (98-107) mmol/L Carbon Dioxide 25 (21-32) mmol/L Anion Gap 9 (3-11) BUN 16 (6-23) mg/dl Creatinine 0.90 (0.6-1.2) mg/dl Est Cr Clr Drug Dosing 56.3 ml/min Est GFR ( Amer) 70.5 ml/min Est GFR (Non-Af Amer) 60.8 ml/min BUN/Creatinine Ratio 17.8 (10-20) Glucose 96 (70-99(Fasting)) mg/dl Calcium 9.3 (8.6-10.3) mg/dl MDM Narrative Cardiac monitoring: An order was placed for continuous cardiac monitoring. The monitor shows a rate of 70 with sinus rhythm interpreted by me External medical records reviewed. CT of the abdomen pelvis conducted earlier today showed: IMPRESSION: 1. Thickening and an irregular appearance to the tip the appendix with mild periappendiceal fat stranding. These findings are concerning for an early acute appendicitis. Surgical consultation recommended. 2. There is a punctate focus of eccentric gas at the tip the appendix which is likely intraluminal. A small focus of microperforation is considered less likely but not entirely excluded. No evidence for periappendiceal abscess. 3. Cholelithiasis. No gallbladder wall thickening. Rocephin and Flagyl ordered for the patient along with basic labs. General surgery was consulted for OR. Impression & Plan Acute appendicitis Discharge Plan Visit Data Chief Complaint: Referred by Doctor Stated Complaint: ACUTE APPENDICITIS ED Provider: Christian Lauren Discharge Problem: Acute appendicitis Patient Disposition: Admitted As Inpatient Discharge Instructions Interventions: ED Discharge Assessment Last Done: 12/15/23 19:52 Discharge Problem: Acute appendicitis Qualifiers: Acute appendicitis type: unspecified acute appendicitis type Qualified Code(s): K35.80 - Unspecified acute appendicitis
[2023-12-15] MEDS: metroNIDAZOLE 500 MG/100 ML BAG IV STA (16:38)
[2023-12-15 17:05] LABS: Basophils # (auto) 0.02 K/uL (0.00-0.20); Basophils % (auto) 0.4 %; Eosinophils # (auto) 0.14 K/uL (0.00-0.50); Eosinophils % (auto) 2.5 %; Hematocrit (blood only) 45.7 % (37.0-47.0); Hemoglobin 14.6 g/dl (12.0-16.0); Immature Granulocytes # (auto) 0.01 K/uL (0.01-0.20); Immature Granulocytes % (auto) 0.2 %; Lymphocytes # (auto) 1.39 K/uL (1.20-3.40); Lymphocytes % (auto) 24.6 %; Mean Corpuscular Hemoglobin 28.6 pg (25.0-34.0); Mean Corpuscular Hgb Conc 31.9 g/dL (32.0-36.0); Mean Corpuscular Volume 89.6 fL (80.0-100.0); Mean Platelet Volume 9.4 fL (9.4-12.4); Monocytes # (auto) 0.46 K/uL (0.11-0.59); Monocytes % (auto) 8.1 %; Neutrophils # (auto) 3.64 K/uL (1.40-6.50); Neutrophils % (auto) 64.2 %; Platelet Count 241 K/uL (130-400); RDW Coefficient of Variation 13.1 % (11.5-14.5); RDW Standard Deviation 43.3 fL (36.4-46.3); White Blood Count 5.66 K/ul (4.8-10.8)
--- NOTE | 2023-12-15 17:10 | Anesthesiology Consultation ---
Date of Service December 15, 2023 Assessment & Plan (1) Encounter for pre-operative examination: Chart Review Chart Review: Acceptable Risk for Surgery and Patient NOT seen in Pre Admission Testing Consults Requested none History Surgery Operation Date: 12/15/23 17:05 Proposed Procedures p Laparoscopic Appendectomy - Richard Lassiter MD Height/Weight Height: 5 ft 5 in Weight: 90.3 kg Allergies Allergy/AdvReac Type Severity Reaction Status Date / Time clavulanic acid Allergy Intermediate RASH Verified 12/15/23 17:09 Sulfa (Sulfonamide Allergy Intermediate HIVES Verified 12/15/23 17:09 Antibiotics) caffeine AdvReac Intermediate PALPITATIONS, Verified 12/15/23 17:09 NUMBNESS IN EXTREMITIES, MIGRANES [id number] Reductase AdvReac Muscle Verified 12/15/23 17:10 Inhibitor aches, rash, cough Medications Home Medications Medication Instructions Recorded Confirmed Last Taken calcium polycarbophil 625 mg 1 tab PO QAM 05/27/18 12/15/23 06/10/18 08:30 tablet (FiberCon) cholecalciferol (vitamin D3) 50 2,000 unit PO QAM 05/27/18 12/15/23 06/10/18 08:30 mcg (2,000 unit) capsule (Vitamin D3) vitamin B complex 1 tab PO QAM 05/27/18 12/15/23 Unknown albuterol sulfate 90 mcg/actuation 2 puff inhalation QID PRN 12/15/23 12/15/23 Unknown aerosol inhaler Shortness Of Breath Or Wheezing Past Medical History Medical History Hypertriglyceridemia Obesity Osteoarthritis Migraine Asthma RARELY USES INHALER. HAS NOT USED FOR ~ 5 MONTHS. Past Family History Family History Father Family hx of colon cancer Past Surgical History Surgical History Nausea and vomiting after administration of anesthetic agent single episode, also strong family hx History of cataract surgery R/L History of hysterectomy TOTAL BSO History of total hip arthroplasty R/L History of total knee replacement RIGHT H/O hand surgery RIGHT HAND FINGER JOINT REPLACEMENT Social History Smoking Status: Never smoker Do You Dip or Chew Tobacco: No Hx Alcohol Use: Yes Alcohol type: beer and wine alcohol intake frequency: 0-2 drinks per day (up to 2, sometimes none) Hx Substance Use: No Physical Exam Vital Signs Last Vital Signs Temp 36.2 C L 12/15/23 16:00 Pulse 75 12/15/23 16:00 Resp 8 L 12/15/23 16:00 BP 163/111 H 12/15/23 16:00 Pulse Ox 96 12/15/23 16:51 O2 Del Method Room Air 12/15/23 16:51 Testing Laboratory Results 12/15/23 16:52 12/15/23 16:52 PT 10.6 Seconds (9.0-12.0) 12/15/23 16:52 INR 1.0 (0.9-1.1) 12/15/23 16:52 APTT 27 Seconds (21-31) 12/15/23 16:52 Electrocardiogram ekg 05/29/2018. nsr. normal tracing. HR 63. Other Testing CT abdomen 12/15/23: IMPRESSION: 1. Thickening and an irregular appearance to the tip the appendix with mild periappendiceal fat stranding. These findings are concerning for an early acute appendicitis. Surgical consultation recommended. 2. There is a punctate focus of eccentric gas at the tip the appendix which is likely intraluminal. A small focus of microperforation is considered less likely but not entirely excluded. No evidence for periappendiceal abscess. 3. Cholelithiasis. No gallbladder wall thickening. 4. Mild hepatic steatosis. 5. Colonic diverticulosis. No evidence for acute diverticulitis. 6. Additional findings as described above.
--- NOTE | 2023-12-15 17:11 | History & Physical Report ---
Date of Service December 15, 2023 Assessment & Plan (1) Acute appendicitis: History of Present Illness Primary Care Provider: Mac Bustos 78-year-old woman presents with severe mid abdominal pain on that lasted for 4 hours. The pain subsided, however she continued to have fevers and chills. She was seen by her primary care doctor today who ordered a CT scan which demonstrated early acute appendicitis. She states she does have some minor pain in her right side currently and her right back. She states she has a high pain tolerance. She has had a prior hysterectomy. She denies taking any blood thinners. Allergies Allergy/AdvReac Type Severity Reaction Status Date / Time clavulanic acid Allergy Intermediate RASH Verified 12/15/23 17:09 Sulfa (Sulfonamide Allergy Intermediate HIVES Verified 12/15/23 17:09 Antibiotics) caffeine AdvReac Intermediate PALPITATIONS, Verified 12/15/23 17:09 NUMBNESS IN EXTREMITIES, MIGRANES [id number] Reductase AdvReac Muscle Verified 12/15/23 17:10 Inhibitor aches, rash, cough Home Medications Medication Instructions Recorded Confirmed Type calcium polycarbophil 625 mg 1 tab PO QAM 05/27/18 12/15/23 History tablet (FiberCon) cholecalciferol (vitamin D3) 50 2,000 unit PO QAM 05/27/18 12/15/23 History mcg (2,000 unit) capsule (Vitamin D3) vitamin B complex 1 tab PO QAM 05/27/18 12/15/23 History albuterol sulfate 90 mcg/actuation 2 puff inhalation QID PRN 12/15/23 12/15/23 History aerosol inhaler Shortness Of Breath Or Wheezing Past Med/Surg History Problem List (Updated 12/15/23 @ 17:12 by Richard Lassiter MD) Acute appendicitis 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 HAS NOT USED FOR ~ 5 MONTHS. Surgical History Nausea and vomiting after administration of anesthetic agent single episode, also strong family hx History of cataract surgery R/L History of hysterectomy TOTAL BSO History of total hip arthroplasty R/L History of total knee replacement RIGHT H/O hand surgery RIGHT HAND FINGER JOINT REPLACEMENT Family History Father Family hx of colon cancer Social History Smoking Status: Never smoker Second Hand Exposure: No; Do You Dip or Chew Tobacco: No; Hx Alcohol Use: Yes Alcohol type: beer and wine Hx Substance Use: No Preferred Language: Afghan Communication Ability: Effective Visual Impairment: No Limitations Supervisor Dry Cleaning Required: No Beliefs That Will Affect Care: None marital status: Current Living Situation: Spouse Feels Safe at Home: Yes Assistive Devices: Walker Review of Systems Review of Systems: All systems reviewed & are unremarkable except as noted in HPI & below Physical Exam Constitutional: WD/WN, vitals as above Eyes: PERRL, conjunctivae normal, anicteric sclerae Neck: trachea midline, no thyromegaly Respiratory: normal respiratory effort, lungs clear to auscultation Cardiovascular: RRR, no murmur, no edema Gastrointestinal (Abdomen): Inspection/Auscultation: abdomen normal to inspection; abdomen not distended Percussion/Palpation: + abdomen tender ( RLQ) and abdomen soft; no guarding and abdomen not rigid Skin: no rashes, warm and dry Psychiatric: A+Ox3, euthymic affect Results & Data Results & Data Vital Signs (Past 12 Hours) Vital Signs Temp Pulse Resp BP Pulse Ox O2 Del Method 12/15/23 16:51 96 Room Air 12/15/23 16:00 36.2 C L 75 8 L 163/111 H 93 Room Air Laboratory Results 12/15/23 Range/Units 16:52 WBC 5.66 (4.8-10.8) K/ul RBC 5.10 (4.20-5.40) M/uL Hgb 14.6 (12.0-16.0) g/dl Hct 45.7 (37.0-47.0) % MCV 89.6 (80.0-100.0) fL MCH 28.6 (25.0-34.0) pg MCHC 31.9 L (32.0-36.0) g/dL RDW Std Deviation 43.3 (36.4-46.3) fL RDW Coeff of Michelle 13.1 (11.5-14.5) % Plt Count 241 (130-400) K/uL MPV 9.4 (9.4-12.4) fL Immature Gran % (Auto) 0.2 % Neut % (Auto) 64.2 % Lymph % (Auto) 24.6 % [place] % (Auto) 8.1 % Eos % (Auto) 2.5 % Baso % (Auto) 0.4 % Neut # (Auto) 3.64 (1.40-6.50) K/uL Lymph # (Auto) 1.39 (1.20-3.40) K/uL [place] # (Auto) 0.46 (0.11-0.59) K/uL Eos # (Auto) 0.14 (0.00-0.50) K/uL Baso # (Auto) 0.02 (0.00-0.20) K/uL Immature Gran # (Auto) 0.01 (0.01-0.20) K/uL PT Pending INR Pending APTT Pending PTT Ratio Pending Sodium Pending Potassium Pending Chloride Pending Carbon Dioxide Pending Anion Gap Pending BUN Pending Creatinine Pending Est Cr Clr Drug Dosing Pending Est GFR ( Amer) Pending Est GFR (Non-Af Amer) Pending BUN/Creatinine Ratio Pending Glucose Pending Calcium Pending Diagnostic Findings CT abdomen pelvis wo/w con CT DOSE: 2641.35 mGy.cm CLINICAL HISTORY: SEVERE EPIGASTRIC PAIN TECHNIQUE: Multiaxial CT images of the abdomen and pelvis were performed both before and after the intravenous administration of contrast. A dose lowering technique was utilized adhering to the principles of ALARA. COMPARISON STUDY: Chest CT 04/29/2023. FINDINGS: Stable subcentimeter nodules within the right lower lobe measuring up to 4 mm. The left lung base is clear. Bilateral total hip arthroplasties are noted. No acute fractures. Degenerative changes within the lumbar spine. Multiple small gallstones. No gallbladder wall thickening. Mild hepatic steatosis. No hepatic or splenic masses. The adrenal glands, pancreas, and kidneys are unremarkable. No renal or ureteral stones. No hydronephrosis. Of note, the distal ureters are obscured by the metallic artifact. The main portal vein is patent. Mild calcified plaque within the normal caliber abdominal aorta. No retroperitoneal or pelvic lymphadenopathy. No pelvic free fluid. Prior hysterectomy. The bladder is now well visualized due to metallic artifact. However, no definite bladder wall thickening. Colonic diverticulosis. No evidence for acute diverticulitis. No dilated loops of bowel to suggest an obstruction. There is thickening within the tip the appendix with mild periappendiceal fat stranding. This is best seen on image 179 with the appendix measuring 9 mm in diameter. There is a punctate focus of eccentric gas at the appendix on this image which is likely intraluminal. A tiny focus of microperforation is considered less likely but not entirely excluded. Therefore, these findings likely represent an acute appendicitis. No abscess identified. IMPRESSION: 1. Thickening and an irregular appearance to the tip the appendix with mild periappendiceal fat stranding. These findings are concerning for an early acute appendicitis. Surgical consultation recommended. 2. There is a punctate focus of eccentric gas at the tip the appendix which is likely intraluminal. A small focus of microperforation is considered less likely but not entirely excluded. No evidence for periappendiceal abscess. 3. Cholelithiasis. No gallbladder wall thickening. 4. Mild hepatic steatosis. 5. Colonic diverticulosis. No evidence for acute diverticulitis. 6. Additional findings as described above. 7. This report was called/faxed to the referring physician following dictation. ACT 112: Negative or not required by law. Electronically signed by: Rafa Regalado M.D. 12/15/2023 2:44 PM (1) Acute appendicitis Acute appendicitis type: with localized peritonitis Appendicitis gangrene presence: without gangrene Appendicitis perforation presence: without perforation Appendicitis abscess presence: without abscess Qualified Code(s): K35.30 - Acute appendicitis with localized peritonitis, without perforation or gangrene
[2023-12-15 17:12] LABS: Partial Thromboplastin Time 27 Seconds (21-31); Prothrombin Time 10.6 Seconds (9.0-12.0)
[2023-12-15] MEDS ORDERED: ePHEDrine sulfate 50 MG/ML AMP IV PRN (17:12)
[2023-12-15] MEDS ORDERED: ATROPINE SULFATE 0.1 MG/ML 10ML SYR IV PRN (17:12)
[2023-12-15] MEDS ORDERED: ONDANSETRON INJ 2 MG/ML 2 ML VIAL IV PRN ×2 (17:12→20:40)
[2023-12-15] MEDS ORDERED: fentaNYL citrate PF 100 MCG/2 ML VIAL IV PRN (17:12)
[2023-12-15] MEDS ORDERED: fentaNYL citrate PF 100 MCG/2 ML VIAL ONE (17:17)
[2023-12-15 17:23] LABS: BUN Creatinine Ratio 17.8 (10-20); Calcium 9.3 mg/dl (8.6-10.3); Creatinine Clr Calc Pharmacy 56.3 ml/min; Est GFR (African American) 70.5 ml/min; Est GFR (Non-African American) 60.8 ml/min
[2023-12-15] MEDS ORDERED: MIDAZOLAM HCL 1 MG/ML 2ML VIAL ONE (17:25)
[2023-12-15] MEDS ORDERED: LIDOCAINE 2% 2 ML VIAL/AMP(20MG/ML) INFIL ONE (17:27)
[2023-12-15] MEDS ORDERED: DEXAMETHASONE SOD INJ 4 MG/ML VIAL ONE (17:27)
[2023-12-15] MEDS ORDERED: PROPOFOL IV EMULSION 10 MG/ML 20 ML VIAL IV ONE (17:27)
[2023-12-15] MEDS ORDERED: ONDANSETRON INJ 2 MG/ML 2 ML VIAL ONE (17:27)
[2023-12-15] MEDS ORDERED: ROCURONIUM BROMIDE 10 MG/ML 5 ML VIAL IV ONE (17:27)
[2023-12-15] MEDS ORDERED: ACETAMINOPHEN 1000 MG/100 ML IV IV ONE (17:28)
[2023-12-15] MEDS ORDERED: ePHEDrine sulfate 50 MG/5 ML SYR ONE (18:40)
[2023-12-15] MEDS ORDERED: SUGAMMADEX SODIUM 200 MG/2 ML VIAL IV ONE (19:06)
[2023-12-15] MEDS: BUPIVACAINE/EPINEPHRINE 0.5% MPF 1:200,000 30 ML VIAL ONE (19:06)
--- NOTE | 2023-12-15 19:36 | Post Operative Brief Note ---
Immediate Post Op Note Date of Surgery December 15, 2023 Pre & Post Diagnosis Operation Date: 12/15/23 17:05 Pre-Op Diagnosis: Acute appendicitis Post-Op Diagnosis: Acute appendicitis I identified the patient and participated in the time-out.: Yes Procedure Operation Date: 12/15/23 17:05 Actual Procedures p Laparoscopic Appendectomy(Not Applicable) - Richard Lassiter MD Surgeon Richard Lassiter MD Director Insurance none Estimated Blood Loss 5 Findings Consistent with Post-Op Diagnosis Drains Valentine Catheter (300ml)
--- NOTE | 2023-12-15 19:37 | Operative Report ---
Post Operative Report Pre & Post Diagnosis Operation Date: 12/15/23 17:05 Pre-Op Diagnosis: Acute appendicitis Post-Op Diagnosis: Acute appendicitis I identified the patient and participated in the time-out.: Yes Procedure Operation Date: 12/15/23 17:05 Actual Procedures p Laparoscopic Appendectomy(Not Applicable) - Richard Lassiter MD Surgeon Richard Lassiter MD Veterinary X Ray Operator none Estimated Blood Loss 5 Findings Consistent with Post-Op Diagnosis acute/chronic appendicitis Specimens appendix Drains none Anesthesia Type General Complications none Description of Procedure the patient was taken to the operating room, and placed supine on the operating table. A timeout was performed, perioperative antibiotics were administered, SCD boots were placed. After adequate anesthesia and analgesia was obtained, the abdomen was prepped and draped in the normal sterile fashion. A 1 cm incision was made in the supraumbilical region and carried down to the level of the fascia. A trach hook was used to grasp the fascia and elevated and a varies needle was used to enter the abdominal cavity. The abdomen was insufflated to a pressure of 15 mmHg, and a 5 mm trocar was placed in this location. A 5 mm 30 degree laparoscope was placed into the abdominal cavity, and the abdomen was surveyed. The patient was placed in Trendelenburg and slightly to the left. One 5 mm trocar was placed in the right upper quadrant, and one 12 mm trocar was placed in the left lower quadrant under direct visualization. The right colon was identified and traced down to the cecum. The appendix was identified and elevated anteriorly and medially. A window was created at the base of the appendix with a [place] dissector. The Endo TAHIR stapler was used to transect the appendix at its base through noninflamed tissue, and subsequently the mesoappendix. The appendix was placed in an Endo Catch bag, and removed via the left lower quadrant port site. Attention was turned to hemostasis, which was excellent. The abdomen was copiously irrigated and suctioned free, and again hemostasis was found to be excellent. All trochars removed under direct visualization. The abdomen was desufflated. The fascia in the 12 mm port site was closed with a 0 Vicryl suture. The skin was closed with a running 4-0 Monocryl subcuticular stitch. Dermabond was applied. The patient tolerated the procedure without complication, and was transferred in stable condition to the PACU. All instrument, needle, and sponge counts were correct at the end of the case. I attest to the content of the Intraoperative Record and any orders documented therein. Any exceptions are noted below.
--- NOTE | 2023-12-15 20:16 | Anesthesiology Progress Note ---
Date of Service December 15, 2023 Anesthesia Post Procedure Vital Signs Vital Signs: Temp Pulse Pulse Resp BP BP Pulse Ox 12/15/23 20:10 60 16 149/72 H 95 12/15/23 19:55 36.4 C L 61 20 147/68 H 95 12/15/23 19:45 65 19 145/74 H 93 12/15/23 19:35 66 17 146/95 H 95 12/15/23 19:29 36.1 C L 67 21 145/75 H 94 12/15/23 17:40 36.9 C 69 18 148/89 H 95 12/15/23 16:51 96 12/15/23 16:00 36.2 C L 75 8 L 163/111 H 93 O2 Del Method O2 Flow Rate 12/15/23 20:10 Nasal Cannula 2 12/15/23 19:55 Nasal Cannula 2 12/15/23 19:45 Oxymask 2 12/15/23 19:35 Oxymask 4 12/15/23 19:29 Oxymask 4 12/15/23 17:40 Room Air 12/15/23 16:51 Room Air 12/15/23 16:00 Room Air Pain Intensity Abdomen: Pain Intensity: 2 Transfer of Care Handoff Completed per policy Notes Mental Status: alert / awake / arousable and participated in evaluation Patient Amnestic to Procedure: Yes Nausea / Vomiting: adequately controlled Pain: adequately controlled Airway Patency, RR, SpO2: stable & adequate BP & HR: stable & adequate Hydration State: stable & adequate Anesthetic Complications: no major complications apparent and Pt Satisfied with anesthetic care
[2023-12-15] MEDS ORDERED: oxyCODONE/ACETAMINOPHEN 5mg/325mg TAB PO PRN ×2 (20:40)
[2023-12-15] MEDS ORDERED: PROMETHAZINE HCL 12.5 MG in SODIUM CHLORIDE 0.9% 50 ML IV PRN (20:40)
[2023-12-15] MEDS ORDERED: diphenhydrAMINE Capsule 25 MG CAP PO PRN (20:40)
[2023-12-15] MEDS ORDERED: KETOROLAC TROMETHAMINE 15 MG/ML VIAL IV PRN (20:40)
[2023-12-15] MEDS ORDERED: MoRPHine SULFATE 2 MG/ML CARP IV PRN (20:40)
[2023-12-15] MEDS: PIPER/TAZO 4.5g in D5W MINI-B 100 ML IV ONE (21:31)
[2023-12-15] MEDS: FAMOTIDINE/PF 20 MG/2 ML VIAL IV ONE (22:53)
[2023-12-16] MEDS: PIPERACILLIN/TAZOBACTAM 4.5 GM in DEXTROSE 5% MINI-B 100 ML IV SCH (03:23)
[2023-12-16] MEDS: ENOXAPARIN INJ 30 MG/0.3 ML SYR SQ SCH (08:46)
--- NOTE | 2023-12-16 09:16 | Discharge Summary ---
Date of Service December 16, 2023 Admission HPI Per Admitting Provider 78-year-old woman presents with severe mid abdominal pain on that lasted for 4 hours. The pain subsided, however she continued to have fevers and chills. She was seen by her primary care doctor today who ordered a CT scan which demonstrated early acute appendicitis. She states she does have some minor pain in her right side currently and her right back. She states she has a high pain tolerance. She has had a prior hysterectomy. She denies taking any blood thinners. Principal Diagnosis acute appendicitis Discharge Exam Constitutional WD/WN, vitals as above + obese, cooperative and comfortable; no acute distress and not ill appearing Respiratory normal respiratory effort; no respiratory distress and no labored breathing Gastrointestinal (Abdomen) Inspection/Auscultation: abdomen normal to inspection and + abdominal surgical incision (c/d/i with dermabond mild ecchymosis); abdomen not distended Percussion/Palpation: + abdomen tender (mild to moderate in RLQ) and abdomen soft; no guarding and abdomen not rigid Skin no rashes, warm and dry Psychiatric A+Ox3, euthymic affect Discharge Data Allergies Allergy/AdvReac Type Severity Reaction Status Date / Time clavulanic acid Allergy Intermediate RASH Verified 12/15/23 17:09 Sulfa (Sulfonamide Allergy Intermediate HIVES Verified 12/15/23 17:09 Antibiotics) caffeine AdvReac Intermediate PALPITATIONS, Verified 12/15/23 17:09 NUMBNESS IN EXTREMITIES, MIGRANES [id number] Reductase AdvReac Muscle Verified 12/15/23 17:10 Inhibitor aches, rash, cough Consultations 12/15/23 16:12 ED Decision to Admit Stat Procedures Performed Operation Date: 12/15/23 17:05 Actual Procedures p Laparoscopic Appendectomy(Not Applicable) - Richard Lassiter MD Hospital Course (1) Acute appendicitis: Patient taken to operating room for laparoscopic appendectomy from emergency department by Dr. Richard Lassiter on 12/15/23. Patient found to have appendicitis without perforation or rupture. There was significant inflammation,likely acute on chronic appendicitis. Patient tolerated procedure without difficulty and transferred to medical/surgical floor for postoperative care. Diet advanced as tolerated, activity as tolerated, and pain management as needed. Patient was doing well on POD # 1 tolerating advanced diet and pain minimal without needing narcotics Patient was discharged home on POD # 1 in stable condition with 5 days of cipro and flagyl. Total Time Total Time Spent Total Time Spent (In Minutes): 30 Total Time Includes: Examination of the Patient, Discharge Planning and Medication Reconciliation Discharge Plan Discharge Items Patient Disposition: Home - Self-Care Reason For Visit: ACUTE APPENDICITIS Discharge Diagnosis: acute appendicitis Activity: Per Instructions section Non-emergency contact: Primary Care Provider and Surgeon Call non-emergency contact if: you have any medication questions, your pain is not controlled, your pain is concerning for you, you have a fever, your temperature is above 101, your wound has increased redness, your wound has increased drainage and your wound pain has increased Follow-up/Referrals: Richard Lassiter MD [Physician] - Mac Bustos [Primary Care Provider] - Diet: Regular Addtl Attending Provider Instructions: Post-Surgical ~Discharge Instructions Activity Recommendations: - lifting limitation: (20 pounds for 2 weeks), - exercise/sex/sports limit: (nonstrenuous for 2 weeks), - driving or machine use limit: (none for 1 week or until pain free), - Shower/bathe limit: (may shower, no submerging incisions underwater for 10-14 days) Diet: - Resume previous diet SPECIAL CARE INSTRUCTIONS: - May shower, let water run over area and pat dry. - Leave surgical glue on incisions, this will fall off on its own - Call the surgeon's office with any questions or concerns - - (ex. temperature higher than 101 degrees F, excessive bleeding or pain) If severe pain or uncontrollable nausea or vomiting go to emergency departement for further evaluation. MEDICATIONS: - Resume previous medications unless instructed otherwise by your surgeon. - May alternate extra strength Tylenol and Ibuprofen as needed for mild to moderate pain -650 mg Tylenol every 6 hours as needed - Ibuprofen 600 mg every 6 hours as needed (take with food) - Take antibiotics for 5 days as prescribed for entire course FOLLOW UP VISIT: - If not already scheduled, please call the office to schedule a two week fo llow-up appointment. Office number Pending Studies at Discharge: Yes (appendix pathology, this will be reviewed at postop visit) Stand-Alone Forms: [email or web address], Smoking Cessation Medications and DC Order Prescriptions: New metronidazole 500 mg tablet 500 mg PO TID Qty: 15 0RF ciprofloxacin HCl [Cipro] 500 mg tablet 500 mg PO BID Qty: 10 0RF Continued vitamin B complex Tablet 1 tab PO QAM cholecalciferol (vitamin D3) [Vitamin D3] 2,000 unit Capsule 2,000 unit PO QAM calcium polycarbophil [FiberCon] 625 mg Tablet 1 tab PO QAM albuterol sulfate 90 mcg/actuation HFA aerosol inhaler 2 puff INHALATION QID PRN (Reason: Shortness Of Breath Or Wheezing) Discharge Orders: Discharge Order (Routine); Ordered 12/16/23 Ordered By: Katherine Whelan Admission Data Admit Date/Time: 12/15/23 19:40 Attending Provider: Richard Lassiter Admit Provider: Richard Lassiter Primary Care Provider: Mac Bustos Other Providers: Richard Lassiter
[2023-12-16 10:50] LABS: Basophils # (auto) 0.01 K/uL (0.00-0.20); Basophils % (auto) 0.1 %; Eosinophils # (auto) 0.01 K/uL (0.00-0.50); Eosinophils % (auto) 0.1 %; Hematocrit (blood only) 41.5 % (37.0-47.0); Hemoglobin 13.5 g/dl (12.0-16.0); Immature Granulocytes # (auto) 0.03 K/uL (0.01-0.20); Immature Granulocytes % (auto) 0.3 %; Lymphocytes # (auto) 1.12 K/uL (1.20-3.40); Lymphocytes % (auto) 9.7 %; Mean Corpuscular Hgb Conc 32.5 g/dL (32.0-36.0); Mean Corpuscular Volume 89.1 fL (80.0-100.0); Mean Platelet Volume 9.7 fL (9.4-12.4); Monocytes # (auto) 0.69 K/uL (0.11-0.59); Neutrophils # (auto) 9.69 K/uL (1.40-6.50); Neutrophils % (auto) 83.8 %; Platelet Count 259 K/uL (130-400); RDW Coefficient of Variation 13.2 % (11.5-14.5); Red Blood Count 4.66 M/uL (4.20-5.40); White Blood Count 11.55 K/ul (4.8-10.8)
== END 2023-12-16 14:21 | disposition home or self-care (01) ==
LOC: ED 15:57 → OR 17:30 → 3E 17:30 → OR 18:40

== ENCOUNTER 2024-02-26 09:31 | Observation (INO) ==
--- NOTE | 2024-02-26 11:13 | Emergency Department Note ---
Impression & Plan Abdominal pain, Nausea & vomiting, Hypomagnesemia, Hyponatremia ED Provider Note ED Provider Note NAME: KILO ESQUEDA AGE:78 SEX: Female : 1945 ARRIVES VIA: Private vehicle INFORMANT: Patient ED PROVIDER(s): Marybeth Cook DO CHIEF COMPLAINT: Abdominal pain, nausea vomiting HPI: This is a 78-year-old female who presents emergency room due to concern for abdominal pain, nausea and vomiting which began on Friday. Patient states that began Friday evening. 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 No radiation into the back. She states she only vomited once, no hematemesis noted. She had subjective fevers and chills and believes she had a low-grade temperature this morning. She did have a bowel movement Friday evening, no BM since. She states she was still passing gas into this morning. She states she has had several prior abdominal surgeries including most recently an appendectomy in December. No recent, URI symptoms. No recent change in medications. No known sick contacts. No change in diet. She states pain is improved laying down. No sense of bloating. PAST MEDICAL HISTORY:See Below PAST SURGICAL HISTORY:See Below FAMILY HISTORY:See Below SOCIAL HISTORY:See Below HOME MEDICATIONS:See Below ALLERGIES:See Below VITALS:See Below PHYSICAL EXAMINATION: GENERAL: alert, well appearing, well nourished, no distress, non-toxic EYE EXAM: normal conjunctiva, PERRL and EOM's grossly intact OROPHARYNX: no exudate, no erythema, lips, buccal mucosa, and tongue normal and mucous membranes are moist NECK: supple, no nuchal rigidity, no adenopathy, non-tender LUNGS: Clear to auscultation. Normal chest wall mechanics, no w/r/r HEART: no murmurs, S1 normal and S2 normal ABDOMEN: abdomen soft, generalized discomfort with palpation across the lower abdomen, right greater than left, normo-active bowel sounds, no masses, no rebound or guarding. BACK: Back is symmetrical on inspection and there is no deformity, no midline tenderness, no CVA tenderness. SKIN: no rashes, petechiae, orbruising UPPER EXTREMITIES: upper extremities are grossly normal. FROM, nml pulses b/l. LOWER EXTREMITIES: No pitting edema. FROM, nml pulses b/l. NEURO EXAM: Normal sensorium, cranial nerves II-XII grossly intact, normal speech, no facial droop,nogross weakness of arms, no gross weakness of legs. Gross sensation intact. No ataxia. Vital Signs: reviewed and remarkable Differential Diagnosis: SBO, colitis, perforation, GI bleed, pancreatitis, mesenteric ischemia, UTI, ureterolithiasis, viral syndrome, dehydration, as well as others were considered MEDICAL DECISION MAKING: This is a 78-year-old female presents to the emergency department due to concern for abdominal pain nausea, and low-grade fever over the last 4 days. Patient was concern for bowel obstruction. Patient was afebrile and hemodynamically stable on arrival. Labs drawn and sent, IV established, EKG performed at bedside interpreted me and patient monitored on telemetry. She was given gentle IV fluids, however declined any additional pain medication. After discussion at bedside of differential diagnosis, patient sent for CT of the abdomen and pelvis. No bowel obstruction noted however mention of inflammation at the mesenteric root, as well as small fluid collection noted in the right lower quadrant. I did inquire of [facility] surg if they thought this could be a stump appendicitis, this was felt to be unlikely. I did discuss the read with the reading radiologist additionally. No known history of GERD, lipase reassuring, unclear etiology. Protonix IV added as a precaution. Patient did report feeling some improvement with IV fluids and repletion of her magnesium. Patient noted to have low sodium, and low magnesium. I suspect this is more likely from decreased oral intake over the last several days due to her symptoms. Through advanced age, leukocytosis, and unclear etiology of CT findings, case discussed with the hospitalist team for additional evaluation and management. Consultation(s): 1720: Discussed with Dr. Steiner, [facility] hospitalist team, for additional evaluation and management. ER Treatment Provided: See below Diagnostics Interpreted By Me: -ECG: Normal sinus at 71, leftward axis, normal intervals, PVC noted, no acute ST/T wave changes -Cardiac Monitoring: An order was placed for continuous cardiac monitoring. The monitor shows a rate of 70 with normal sinus rhythm. -Laboratory studies: As stated above and show below. 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 HAS NOT USED FOR ~ 5 MONTHS. Surgical History (Updated 01/15/24 @ 00:06 by Kenny Polk) Nausea and vomiting after administration of anesthetic agent single episode, also strong family hx History of cataract surgery R/L History of hysterectomy TOTAL BSO History of total hip arthroplasty R/L History of total knee replacement RIGHT H/O hand surgery RIGHT HAND FINGER JOINT REPLACEMENT Family History Father Family hx of colon cancer Social History Smoking Status: Never smoker Second Hand Exposure: No; Do You Dip or Chew Tobacco: No; Hx Alcohol Use: Yes Alcohol type: beer and wine Hx Substance Use: No Preferred Language: Sammarinese Communication Ability: Effective Visual Impairment: No Limitations Stallion Manager Required: No Beliefs That Will Affect Care: None marital status: Current Living Situation: Spouse Other Information That Helps Us Care for You: No Feels Safe at Home: Yes Safety Concerns: Feels Safe At This Time Assistive Devices: None Allergies Allergies Allergy/AdvReac Type Severity Reaction Status Date / Time clavulanic acid Allergy Intermediate RASH Verified 02/26/24 16:11 Sulfa (Sulfonamide Allergy Intermediate HIVES Verified 02/26/24 16:11 Antibiotics) amoxicillin [From Augmentin] Allergy Mild Hives Unverified 02/26/24 16:11 caffeine AdvReac Intermediate PALPITATIONS, Verified 02/26/24 16:11 NUMBNESS IN EXTREMITIES, MIGRANES [id number] Reductase AdvReac Muscle Verified 02/26/24 16:11 Inhibitor aches, rash, cough Home Meds Home Medications Medication Instructions Recorded Confirmed calcium polycarbophil 625 mg 1 tab PO QAM 05/27/18 02/26/24 tablet (FiberCon) cholecalciferol (vitamin D3) 50 2,000 unit PO QAM 05/27/18 02/26/24 mcg (2,000 unit) capsule (Vitamin D3) vitamin B complex 1 tab PO QAM 05/27/18 02/26/24 Results & Data (ED) Vital Signs Vital Signs - 24 hr 02/26/24 09:34 02/26/24 09:44 02/26/24 11:21 Temperature 37.1 C Temperature Source Oral Pulse Rate 69 Pulse Rate [Apical] 63 Pulse Rate from SpO2 Sensor Respiratory Rate 18 20 20 Respiratory Effort / Characteristics Non-Labored Non-Labored Respiratory Depth Normal Normal Blood Pressure 162/73 H Blood Pressure [Left Arm] 148/63 H Blood Pressure Mean 102 Blood Pressure Mean [Left Arm] 91 Blood Pressure Position Sitting Blood Pressure Position [Left Arm] Lying Pulse Oximetry 95 97 Oxygen Delivery Method Room Air Room Air Sepsis Recent Fever Within 48 Hours No Sepsis New/Unexplained Change in Mental Status No Sepsis Action Taken by Nursing No Action Required 02/26/24 11:21 02/26/24 11:21 02/26/24 11:21 Temperature Temperature Source Pulse Rate Pulse Rate [Apical] Pulse Rate from SpO2 Sensor Respiratory Rate Respiratory Effort / Characteristics Respiratory Depth Blood Pressure 148/63 H 148/63 H 148/63 H Blood Pressure [Left Arm] Blood Pressure Mean 111 111 111 Blood Pressure Mean [Left Arm] Blood Pressure Position Blood Pressure Position [Left Arm] Pulse Oximetry Oxygen Delivery Method Sepsis Recent Fever Within 48 Hours Sepsis New/Unexplained Change in Mental Status Sepsis Action Taken by Nursing 02/26/24 11:24 02/26/24 11:30 02/26/24 12:00 Temperature Temperature Source Pulse Rate 64 65 66 Pulse Rate [Apical] Pulse Rate from SpO2 Sensor 66 Respiratory Rate 20 12 6 L Respiratory Effort / Characteristics Respiratory Depth Blood Pressure 148/63 H Blood Pressure [Left Arm] Blood Pressure Mean 91 Blood Pressure Mean [Left Arm] Blood Pressure Position Blood Pressure Position [Left Arm] Pulse Oximetry 95 Oxygen Delivery Method Sepsis Recent Fever Within 48 Hours Sepsis New/Unexplained Change in Mental Status Sepsis Action Taken by Nursing 02/26/24 12:03 02/26/24 12:27 02/26/24 12:27 Temperature Temperature Source Pulse Rate 65 Pulse Rate [Apical] Pulse Rate from SpO2 Sensor 64 Respiratory Rate 12 Respiratory Effort / Characteristics Respiratory Depth Blood Pressure 160/63 H 160/63 H Blood Pressure [Left Arm] Blood Pressure Mean 103 103 Blood Pressure Mean [Left Arm] Blood Pressure Position Blood Pressure Position [Left Arm] Pulse Oximetry 96 Oxygen Delivery Method Sepsis Recent Fever Within 48 Hours Sepsis New/Unexplained Change in Mental Status Sepsis Action Taken by Nursing 02/26/24 12:28 02/26/24 12:30 02/26/24 13:00 Temperature Temperature Source Pulse Rate 67 66 Pulse Rate [Apical] 65 Pulse Rate from SpO2 Sensor 68 65 Respiratory Rate 16 12 19 Respiratory Effort / Characteristics Non-Labored Respiratory Depth Normal Blood Pressure Blood Pressure [Left Arm] 160/63 H Blood Pressure Mean Blood Pressure Mean [Left Arm] 95 Blood Pressure Position Blood Pressure Position [Left Arm] Pulse Oximetry 95 95 96 Oxygen Delivery Method Room Air Sepsis Recent Fever Within 48 Hours Sepsis New/Unexplained Change in Mental Status Sepsis Action Taken by Nursing 02/26/24 13:03 02/26/24 13:30 02/26/24 14:00 Temperature Temperature Source Pulse Rate 62 90 Pulse Rate [Apical] 61 Pulse Rate from SpO2 Sensor 66 Respiratory Rate 19 20 Respiratory Effort / Characteristics Non-Labored Respiratory Depth Normal Blood Pressure Blood Pressure [Left Arm] 149/81 H Blood Pressure Mean Blood Pressure Mean [Left Arm] 103 Blood Pressure Position Blood Pressure Position [Left Arm] Sitting Pulse Oximetry 94 95 Oxygen Delivery Method Room Air Sepsis Recent Fever Within 48 Hours Sepsis New/Unexplained Change in Mental Status Sepsis Action Taken by Nursing 02/26/24 14:06 02/26/24 14:06 02/26/24 14:06 Temperature Temperature Source Pulse Rate 66 Pulse Rate [Apical] Pulse Rate from SpO2 Sensor 66 Respiratory Rate 13 Respiratory Effort / Characteristics Respiratory Depth Blood Pressure 149/81 H 149/81 H Blood Pressure [Left Arm] Blood Pressure Mean 116 116 Blood Pressure Mean [Left Arm] Blood Pressure Position Blood Pressure Position [Left Arm] Pulse Oximetry 95 Oxygen Delivery Method Sepsis Recent Fever Within 48 Hours Sepsis New/Unexplained Change in Mental Status Sepsis Action Taken by Nursing 02/26/24 14:27 02/26/24 14:30 02/26/24 14:33 Temperature Temperature Source Pulse Rate 70 65 Pulse Rate [Apical] Pulse Rate from SpO2 Sensor 68 66 Respiratory Rate 22 19 Respiratory Effort / Characteristics Respiratory Depth Blood Pressure 159/81 H Blood Pressure [Left Arm] Blood Pressure Mean 91 Blood Pressure Mean [Left Arm] Blood Pressure Position Blood Pressure Position [Left Arm] Pulse Oximetry 93 95 Oxygen Delivery Method Sepsis Recent Fever Within 48 Hours Sepsis New/Unexplained Change in Mental Status Sepsis Action Taken by Nursing 02/26/24 15:00 02/26/24 15:21 02/26/24 15:30 Temperature Temperature Source Pulse Rate 68 65 Pulse Rate [Apical] Pulse Rate from SpO2 Sensor 67 Respiratory Rate 18 18 Respiratory Effort / Characteristics Respiratory Depth Blood Pressure 147/82 H Blood Pressure [Left Arm] Blood Pressure Mean 103 Blood Pressure Mean [Left Arm] Blood Pressure Position Blood Pressure Position [Left Arm] Pulse Oximetry 95 Oxygen Delivery Method Sepsis Recent Fever Within 48 Hours Sepsis New/Unexplained Change in Mental Status Sepsis Action Taken by Nursing 02/26/24 16:48 02/26/24 16:57 02/26/24 17:03 Temperature Temperature Source Pulse Rate 65 66 67 Pulse Rate [Apical] Pulse Rate from SpO2 Sensor Respiratory Rate 19 13 Respiratory Effort / Characteristics Respiratory Depth Blood Pressure Blood Pressure [Left Arm] Blood Pressure Mean Blood Pressure Mean [Left Arm] Blood Pressure Position Blood Pressure Position [Left Arm] Pulse Oximetry Oxygen Delivery Method Sepsis Recent Fever Within 48 Hours Sepsis New/Unexplained Change in Mental Status Sepsis Action Taken by Nursing 02/26/24 17:57 02/26/24 18:24 02/26/24 18:39 Temperature Temperature Source Pulse Rate 63 64 68 Pulse Rate [Apical] Pulse Rate from SpO2 Sensor Respiratory Rate 15 17 21 Respiratory Effort / Characteristics Respiratory Depth Blood Pressure 143/90 H Blood Pressure [Left Arm] Blood Pressure Mean 107 Blood Pressure Mean [Left Arm] Blood Pressure Position Blood Pressure Position [Left Arm] Pulse Oximetry Oxygen Delivery Method Sepsis Recent Fever Within 48 Hours Sepsis New/Unexplained Change in Mental Status Sepsis Action Taken by Nursing Laboratory Data 02/27/24 06:25 02/27/24 06:25 Lab Results 02/26/24 02/26/24 Range/Units 11:01 17:05 WBC 15.49 H (4.8-10.8) K/ul RBC 4.59 (4.20-5.40) M/uL Hgb 13.3 (12.0-16.0) g/dl Hct 40.9 (37.0-47.0) % MCV 89.1 (80.0-100.0) fL MCH 29.0 (25.0-34.0) pg MCHC 32.5 (32.0-36.0) g/dL RDW Std Deviation 41.1 (36.4-46.3) fL RDW Coeff of Michelle 12.6 (11.5-14.5) % Plt Count 222 (130-400) K/uL MPV 9.6 (9.4-12.4) fL Immature Gran % (Auto) 0.6 % Neut % (Auto) 83.8 % Lymph % (Auto) 9.4 % Thayer % (Auto) 6.0 % Eos % (Auto) 0.1 % Baso % (Auto) 0.1 % Neut # (Auto) 13.00 H (1.40-6.50) K/uL Lymph # (Auto) 1.45 (1.20-3.40) K/uL Thayer # (Auto) 0.93 H (0.11-0.59) K/uL Eos # (Auto) 0.01 (0.00-0.50) K/uL Baso # (Auto) 0.01 (0.00-0.20) K/uL Immature Gran # (Auto) 0.09 (0.01-0.20) K/uL PT 11.2 (9.0-12.0) Seconds INR 1.0 (0.9-1.1) Sodium 128 L (136-145) mmol/L Potassium 3.8 (3.5-5.1) mmol/L Chloride 94 L (98-107) mmol/L Carbon Dioxide 28 (21-32) mmol/L Anion Gap 6 (3-11) BUN 12 (6-23) mg/dl Creatinine 0.65 (0.6-1.2) mg/dl Est Cr Clr Drug Dosing 84.0 ml/min eGFR 89.51 BUN/Creatinine Ratio 18.5 (10-20) Glucose 125 H (70-99(Fasting)) mg/dl Lactate 1.1 (0.4-2.0) mmol/L Calcium 8.8 (8.6-10.3) mg/dl Magnesium 1.5 L (1.7-2.4) mg/dl Total Bilirubin 1.1 H (0.2-1.0) mg/dl AST 23 (13-39) U/L ALT 52 (7-52) U/L Alkaline Phosphatase 60 (34-104) U/L Troponin I High Sens 8.9 (0-14) pg/ml Total Protein 7.1 (6.0-8.3) gm/dl Albumin 3.7 (3.4-5.0) gm/dl Globulin 3.4 (2.5-4.0) gm/dl Albumin/Globulin Ratio 1.1 (0.9-2) Lipase 26 (11-82) U/L Procalcitonin 0.02 (0-0.5) ng/ml Administered Medications Sodium Chloride (Nss) 1,000 mls @ 100 mls/hr IV .Q10H PRINCESS Stop: 03/27/24 19:44 Last Admin: 02/27/24 08:10 Dose: 100 mls/hr Documented By: Infusion: 02/27/24 08:06 Dose: Infused Documented By: Admin: 02/26/24 21:56 Dose: 100 mls/hr Documented By: ALEKSANDR Pantoprazole Sodium 40 mg/ (Syringe) 10 mls @ 5 mls/min IV BID PRINCESS Stop: 03/28/24 08:59 Last Admin: 02/27/24 08:17 Dose: 5 mls/min Documented By: SHADI Magnesium Sulfate/Dextrose (Magnesium Sulfate / D5w) 1 gm in 100 mls @ 50 mls/hr IV ONE ONE Stop: 02/27/24 09:57 Last Admin: 02/27/24 08:13 Dose: 50 mls/hr Documented By: SHADI Discontinued Medications Sodium Chloride (Nss) 1,000 mls @ 125 mls/hr IV .Q8H PRINCESS Stop: 03/27/24 10:44 Last Infusion: 02/26/24 22:35 Dose: Infused Documented By: Admin: 02/26/24 19:21 Dose: 125 mls/hr Documented By: Infusion: 02/26/24 19:20 Dose: Infused Documented By: Admin: 02/26/24 11:20 Dose: 125 mls/hr Documented By: SHAR Magnesium Sulfate/Dextrose (Magnesium Sulfate / D5w) 1 gm in 100 mls @ 100 mls/hr IV NOW STA Stop: 02/26/24 13:17 Last Infusion: 02/26/24 13:44 Dose: Infused Documented By: Admin: 02/26/24 12:35 Dose: 100 mls/hr Documented By: SHAR Pantoprazole Sodium 40 mg/ (Syringe) 10 mls @ 5 mls/min IV NOW ONE Stop: 02/26/24 17:25 Last Admin: 02/26/24 19:22 Dose: 5 mls/min Documented By: LUZ Ioversol (Optiray 320 100ml) 93 ml IV ONCE ONE Stop: 02/26/24 12:14 Last Admin: 02/26/24 12:13 Dose: 93 ml Documented By: [facility] Imaging Data Radiologist's Impression: Abdomen/Pelvis CT 02/26/24 10:[address] WITH IV CONTRAST CT DOSE: 1380.75 mGy.cm HISTORY: Acute onset abdominal pain with nausea and vomiting abd pain, n/v TECHNIQUE: Multiaxial CT images of the abdomen and pelvis were performed following the IV administration of 93 cc of Optiray, A dose lowering technique was utilized adhering to the principles of ALARA. COMPARISON STUDY: CT abdomen and pelvis 12/15/2023; chest CT 04/29/2023 FINDINGS: There are a few solid nodules noted within the right lung base measuring up to 9 mm which are unchanged from prior and of low clinical suspicion. No free air. Unremarkable spleen, pancreas and adrenal glands. Mildly contracted gallbladder with cholelithiasis. The liver is within normal limits. Patency of the hepatic and portal veins. Unremarkable kidneys. No hydronephrosis. Partially decompressed urinary bladder. Atherosclerosis of the aorta without aneurysm. No lymphadenopathy. Small hiatal hernia with distal esophageal wall thickening. There is additional mild circumferential wall thickening involving the third portion of the duodenum. Moderate inflammatory stranding is present within the mesenteric root centered around the patent superior mesenteric artery and third portion of the duodenum. Colonic diverticulosis. Anastomotic suture noted within the abdominal right lower quadrant. There is a 3.4 cm tubular structure within the abdominal right lower quadrant adjacent to the proximal ascending colon on image 210 series 3 measuring 8 mm transversely and appears to be fluid-filled. Unremarkable soft tissues. Bilateral hip arthroplasties. No acute fracture. IMPRESSION: 1. Nonspecific moderate inflammatory stranding within the mesenteric root centered around the patent superior mesenteric artery and third portion duodenum. Differential considerations include a nonspecific duodenitis or mesenteritis. Acute pancreatitis considered less likely. 2. Cholelithiasis without acute cholecystitis. 3. There is a 3 cm tubular fluid-filled structure within the abdominal right lower quadrant which appears similar to the abnormal appendix described on the 12/15/2023 exam. The patient has since undergone an appendectomy. Differential considerations include residual appendix versus small postoperative fluid collection. No drainable fluid collections are present. 4. No bowel obstruction or pneumoperitoneum. ACT 112: Negative or not required by law. The above report was generated using voice recognition software. It may contain grammatical, syntax or spelling errors. Electronically signed by: Leonel Lo M.D. 02/26/2024 1:03 PM Discharge Plan Visit Data Chief Complaint: Abdominal Pain Stated Complaint: ABD PAIN ED Provider: Marybeth Cook Discharge Problem: Abdominal pain, Nausea & vomiting, Hypomagnesemia, Hyponatremia Patient Disposition: Admitted As Inpatient Discharge Instructions Interventions: ED Discharge Assessment Last Done: 02/26/24 21:30
[2024-02-26] MEDS: SODIUM CHLORIDE 0.9% 1,000 ML IV SCH ×2 (11:20→21:56)
[2024-02-26 11:21] LABS: Basophils # (auto) 0.01 K/uL (0.00-0.20); Basophils % (auto) 0.1 %; Eosinophils # (auto) 0.01 K/uL (0.00-0.50); Eosinophils % (auto) 0.1 %; Hematocrit (blood only) 40.9 % (37.0-47.0); Hemoglobin 13.3 g/dl (12.0-16.0); Immature Granulocytes # (auto) 0.09 K/uL (0.01-0.20); Immature Granulocytes % (auto) 0.6 %; Lymphocytes # (auto) 1.45 K/uL (1.20-3.40); Lymphocytes % (auto) 9.4 %; Mean Corpuscular Hgb Conc 32.5 g/dL (32.0-36.0); Mean Corpuscular Volume 89.1 fL (80.0-100.0); Mean Platelet Volume 9.6 fL (9.4-12.4); Monocytes # (auto) 0.93 K/uL (0.11-0.59); Neutrophils % (auto) 83.8 %; Platelet Count 222 K/uL (130-400); RDW Coefficient of Variation 12.6 % (11.5-14.5); RDW Standard Deviation 41.1 fL (36.4-46.3); Red Blood Count 4.59 M/uL (4.20-5.40); White Blood Count 15.49 K/ul (4.8-10.8)
[2024-02-26 11:31] LABS: Albumin Globulin Ratio 1.1 (0.9-2); Albumin Level 3.7 gm/dl (3.4-5.0); BUN Creatinine Ratio 18.5 (10-20); Bilirubin,Total 1.1 mg/dl (0.2-1.0); Calcium 8.8 mg/dl (8.6-10.3); Globulin 3.4 gm/dl (2.5-4.0); Magnesium 1.5 mg/dl (1.7-2.4); Potassium 3.8 mmol/L (3.5-5.1); Total Protein 7.1 gm/dl (6.0-8.3)
[2024-02-26 11:38] LABS: Troponin I High Sensitivity 8.9 pg/ml (0-14)
[2024-02-26 11:42] LABS: Prothrombin Time 11.2 Seconds (9.0-12.0)
[2024-02-26] MEDS: OPTIRAY 320 100ml IV ONE (12:13)
[2024-02-26] MEDS: MAGNESIUM SULFATE / D5W 1 GM/100 ML BAG IV STA (12:35)
--- NOTE | 2024-02-26 13:05 | CT Scan Report ---
ABDOMEN AND PELVIS CT WITH IV CONTRAST CT DOSE: 1380.75 mGy.cm HISTORY: Acute onset abdominal pain with nausea and vomiting abd pain, n/v TECHNIQUE: Multiaxial CT images of the abdomen and pelvis were performed following the IV administrat ion of 93 cc of Optiray, A dose lowering technique was utilized adhering to the principles of ALARA. COMPARISON STUDY: CT abdomen and pelvis 12/15/2023; chest CT 04/29/2023 FINDINGS: There are a few solid nodules noted within the right lung base measuring up to 9 mm which a re unchanged from prior and of low clinical suspicion. No free air. Unremarkable spleen, pancreas and adrenal glands. Mildly contracted gallbladder with cholelithiasis. The liver is within normal limits . Patency of the hepatic and portal veins. Unremarkable kidneys. No hydronephrosis. Partially decompr essed urinary bladder. Atherosclerosis of the aorta without aneurysm. No lymphadenopathy. Small hiatal hernia with distal esophageal wall thickening. There is additional mild circumferential wall thickening involving the third portion of the duodenum. Moderate inflammatory stranding is prese nt within the mesenteric root centered around the patent superior mesenteric artery and third portion of the duodenum. Colonic diverticulosis. Anastomotic suture noted within the abdominal right lower q uadrant. There is a 3.4 cm tubular structure within the abdominal right lower quadrant adjacent to th e proximal ascending colon on image 210 series 3 measuring 8 mm transversely and appears to be fluid- filled. Unremarkable soft tissues. Bilateral hip arthroplasties. No acute fracture. IMPRESSION: 1. Nonspecific moderate inflammatory stranding within the mesenteric root centered around the patent superior mesenteric artery and third portion duodenum. Differential considerations include a nonspeci fic duodenitis or mesenteritis. Acute pancreatitis considered less likely. 2. Cholelithiasis without acute cholecystitis. 3. There is a 3 cm tubular fluid-filled structure within the abdominal right lower quadrant which tim ears similar to the abnormal appendix described on the 12/15/2023 exam. The patient has since undergon e an appendectomy. Differential considerations include residual appendix versus small postoperative f luid collection. No drainable fluid collections are present. 4. No bowel obstruction or pneumoperitoneum. ACT 112: Negative or not required by law. The above report was generated using voice recognition software. It may contain grammatical, syntax o r spelling errors. Electronically signed by: Leonel Lo M.D. 02/26/2024 1:03 PM
[2024-02-26 14:24] LABS: Appearance Urine Clear (Clear); Bacteria Urine Automated 2+ (None Seen); Bilirubin Urine Negative (Negative); Blood Urine 1+ (Negative); Cast Urine Automated 0-2 /lpf (0-2); Glucose Urine UA Negative (Negative); Ketones Urine 1+ (Negative); Leukocyte Esterase Urine Negative (Negative); Nitrite Urine Negative (Negative); Protein Urine 1+ (Negative); Specific Gravity Urine > 1.045 (1.000-1.030); Urobilinogen Urine Negative (Negative); WBC Urine Automated 0-5 /hpf (0-5); pH Urine 5.5 (4.5-7.5)
[2024-02-26 14:26] LABS: Color Urine Yellow
--- OUTSIDE RECORDS SUMMARY | 2024-02-26 15:36 | External Medical Summary | Continuity of Care Document ---
Author Name Unknown Organization [facility] [address] [place] [phone] Care Team Providers Care Permit Specialist Name Role Phone Mac Bustos Primary Care Physician [phone] Encounter [facility] [id number] Date(s): 12/15/23 - 12/15/23 [facility] [address] [facility] 207 [facility] [address] [address] [place] [phone] Encounter Diagnosis Body mass index [BMI] 38.0-38.9, adult(Discharge Diagnosis) - 12/15/23 Abdominal pain(Discharge Diagnosis) - 12/15/23 Discharge Disposition: Home or Self Care Attending Physician: DO Uribe Stephanie Marie Allergies, Adverse Reactions, Alerts Substance Criticality Severity Reaction Reaction Severity Status lovastatin Myalgias Active Crestor cough Rosuvastatin Active ZyrTEC sedation Active Pravastatin Sodium stomach cramps Active caffeine migraines, paresthesias Active sulfa drugs hives Active Augmentin Rash Active Assessment and Plan Extracted from: Title:Office Visit Note Author:DO Uribe Steph anie Marie Date:12/15/23 1.Abdominal pain Undiagnosedproblem Goal:Resolution Data:unique tests ordered:CBC,CMP,UA STATCT abd/pelvisw/ and w/o contrast EKGcompleted in office Plan: Patient with episode of very severe epigastric abdominal pain w/ associated dark urine, nausea, and sweating/subjective fever that started 3-4 days ago. The abdominal pain has resolved but she continues to have right flank pain and has not returned to baseline. Labs and imaging ordered as noted above. Further plan pending results of testing. Patient advised that if she were to have recurrence of the severe abdominal pain, she should be seen in the ER for urgentevaluation. Inclusive of time spent reviewing the medical record, [id number] time with the patient, and time spent in documentation, the total time spent on this encounter today was 45 minutes. Addendum by DO Uribe Step alejo Dwyere on December 15, 2023 15:26:[address] abd/pelvis report, "findings are concerning for an early acute appendicitis. Surgical consultation recommended." I personally called patient and notified her of the results, recommend that she go to the ER for further evaluation and management. Patient acknowledges and will go to the ER; she states that her will drive her. I called [facility] ER and provided hand-off/report. Immunizations Given and Recorded Vaccine Date Status Refusal Reason SARS-CoV-2 (COVID-19) mRNA-1273 vaccine 02/09/21 R ecorded SARS-CoV-2 (COVID-19) mRNA-1273 vaccine 1 07/23/20 Recorded SARS-CoV-2 (COVID-19) mRNA-1273 vaccine 2 07/23/20 Recorded SARS-CoV-2 (COVID-19) mRNA-1273 vaccine 3 06/18/20 Recorded SARS-CoV-2 (COVID-19) mRNA-1273 vaccine 4 06/18/20 Recorded tetanus/diphtheria/pertuss, acel (Tdap) 02/14/20 R ecorded tetanus/diphtheria/pertuss, acel (Tdap) 06/01/09 R ecorded zoster vaccine, inactivated 03/23/19 Recorded zoster vaccine, inactivated 03/23/19 Recorded zoster vaccine, inactivated 5 03/23/19 Recorded zoster vaccine, inactivated 12/02/18 Given hepatitis B adult vaccine 06/26/15 Recorded hepatitis B adult vaccine 02/23/15 Recorded hepatitis B adult vaccine 01/24/15 Recorded pneumococcal 13-valent vaccine 10/06/14 Given pneumococcal 23-valent vaccine 09/25/09 Recorded pneumococcal 23-valent vaccine 6 05/28/09 Recorded zoster vaccine live 01/20/09 Recorded hepatitis A adult vaccine 05/14/03 Recorded hepatitis A adult vaccine 10/15/02 Recorded 1Result Comment: [facility] 2Result Comment: 2021-02-07: Historical information-source unspecified 3Result Comment: [facility] 4Result Comment: 2021-02-07: Historical information-source unspecified 5Result Comment: 2019-08-11: Historical information-source unspecified 6Result Comment: 2019-08-11: Historical information-source unspecified Medications albuterol CFC free 90 mcg/inh MDI Start: 09/15/23 5:22:00 PM EDT, 2 puff, inhaled, qid, Disp# 8 g, Refills: 3, PRN: as needed for wheezing, Pharmacy: [facility] Start Date: 09/15/23 Status: Ordered Amoxil 500 mg oral tablet Start: 09/15/23 5:21:00 PM EDT, 1 tab, PO, bid, Disp# 20 tab, Refills: 0, Pharmacy: [facility] Start Date: 09/15/23 Stop Date: 09/25/23 Status: Ordered FiberCon 625 mg oral tablet Start: 03/28/11 11:29:00 AM EDT, 1 tab, PO, Daily Start Date: 03/28/11 Status: Ordered ketoconazole 2% topical cream Start: 04/24/22 8:25:00 AM EST, 1 appl, topical, bid, Disp# 30 g, Refills: 1, To rash on face BID, Pharmacy: [facility] Start Date: 04/24/22 Status: Ordered Vitamin B Complex Start: 06/06/14 8:46:00 AM EST, PO, Daily Start Date: 06/06/14 Status: Ordered Vitamin D3 Start: 05/31/10 10:33:20 AM EST, 2000 Int_Unit =, PO, Daily, Refills: 0, current medication from another provider Start Date: 05/31/10 Status: Ordered Zetia 10 mg oral tablet Start: 09/09/22 2:15:00 PM EDT, 1 tab, PO, Daily, Disp# 90 tab, Refills: 3, Pharmacy: [facility] Start Date: 09/09/22 Stop Date: 09/04/23 Status: Ordered Mental Status 12/15/23 Barriers to Learning one year None evide nt Mandatory Health Literacy Documentation Yes Health Literacy Communication Barriers N ever Primary Language Jordanian Problem List Condition Confirmation Course Effective Dates Status Health Status Informant Asthma flare Confirmed Active Antibiotic prophylaxis recommended 1 Confirmed Active Hematuria Confirmed Active Family history of colon cancer 2 Confirmed Active Generalized osteoarthritis Confirmed Active S/P total knee replacement Confirmed Active Elevated hematocrit Confirmed Active History of actinic keratoses Confirmed Active History of adenomatous polyp of colon Confirmed Active Status post bilateral knee replacements Confirmed Active Hyperlipidemia Confirmed Active Hypertriglyceridemia Confirmed Active IGT (impaired glucose tolerance) Confirmed Active Inflamed seborrheic keratosis Confirmed Active Right medial knee pain Confirmed Active Lentigo Confirmed Active Lipoma Confirmed Active Lumbar strain Confirmed Active Menopausal and perimenopausal disorder Confirmed Active Morbid obesity Confirmed Active Pulmonary nodule Confirmed Active Osteoarthritis of right knee Confirmed Active Primary osteoarthritis of left knee Confirmed Active Osteoarthrosis of the carpometacarpal joint of the thumb Confirmed Active Health care maintenance Confirmed Active Colon polyps 3 Confirmed Active Rosacea Confirmed Active Seborrhea Confirmed Active Seborrheic keratoses Confirmed Active Senile hyperkeratosis Confirmed Active Sun-damaged skin Confirmed Active Tinnitus, right ear Confirmed Active Urticaria Confirmed Active 1prior to dentist or any invasive procedures 2father 3Tubular adenomas x 3 ( 2013) . Repeat COLO in 3 years Diagnosis Diagnosis Type Effective Dates Health Status Cl inical Service Informant Body mass index [BMI] 38.0-38.9, adult Discharge Diagnosis 12/15/23 Non-Specified Abdominal pain Discharge Diagnosis 12/15/23 Non-Specified Procedures Procedure Date Related Diagnosis Body Site Status Mammography 04/26/22 Completed US doppler scan of kidney 1 08/21/21 Completed Diagnostic colonoscopy 2 03/13/20 Completed Mammogram 02/10/20 Completed Mammogram 3 01/19/19 Completed History of left total knee r eplacement 4 06/11/18 Completed Mammogram 5 12/25/17 Completed Mammogram 6 12/11/16 Completed Colonoscopy 7, 8 08/21/16 Complete d Mammogram 9 10/25/15 Completed Total knee arthroplasty 10 08/16/15 Completed Chest x-ray 11 08/04/15 Completed Mammogram - screening 12 10/06/14 Completed Carpal tunnel release 13 06/28/14 Completed Mammogram - screening 09/16/13 Com pleted Colonoscopy abnormal 14 07/07/13 C ompleted mammogram 09/15/12 Completed Colonoscopy 15 04/10/10 Completed left carpal tunnel release 06/22/09 Completed Hip replacement 2009 [facility] [place] DEXA - Dual energy X-ray martha ton absorptiometry 17 06/19/05 Completed colonoscopy normal 18 03/15/05 Com pleted Cataract extraction, inserti on of intraocular lens and trabeculectomy 19 05/22/04 Completed Cataract extraction, inserti on of intraocular lens and trabeculectomy 20 09/09/03 Completed BUD/BSO 02/20/01 Completed BTL 1980 Completed 11. Mild bilateral cortical thinning. No renal calculi or hydronephrosis. 2. Partial distention of the urinary bladder. 3. Cholelithiasis incidentally noted. 2-Diverticulitis in the sigmoid colon -No specimens collected 3There is no mammographic evidence of malignancy. A 1yr screening mammogram is recommended. 4Sebastianelli 5There is no mammographic evidence of malignancy. A 1yr screening is recommended 6wnl/repeat 1 yr 7Hyperplastic polyp and tubular adenoma repeat 5 years 8Diverticulosis in the sigmoid colon. Non-bleeding internal hemorrhoids. One 3 mm polyp at the hepatric flexure, removed with old biopsy forceps. Resected and retrieved. One 3 mm polyp in the proximaltransverse colon, treated with a cold biopsy forceps. Resected and retrieved. 9WNL 10right - Larry 11the lungs are clear, cardiac silhouete is normal in size, No pleural effusions. No pneurmothorax - PRE-OP 12WNL - 1 yr 13right wrist 14one 5 mm polyp in the ascending colon; two 2-4mm polys in the proximal transverse colon; diverticulosis in the sigmoid colon 151 diverticula; hemorrhoids 16and 2010 17-0.7 forearm 18+FH of colon CA (father) 19left 20right Vital Signs Most recent to oldest [Reference Range]: 1 Height 165 cm (12/15/23 11:22 AM) Patient Weight 104 kg (12/15/23 11:22 AM) Body Mass Index 38.2 kg/m2 (12/15/23 11:22 AM) Heart Rate 66 bpm (12/15/23 11:22 AM) Respiratory Rate 17 br/min (12/15/23 11:22 AM) Blood Pressure 122/68mmHg (12/15/23 11:22 AM) Social History Social History Type Response Smoking Status Never smoked cigaret umberto Sex Female Sex Representation Female (finding) Radiology * Contributor_system, [email or web address]: VERIFY, PERFORM Event Display: EKG Authored Date: Please click on link to see image. FCM Outpt Note * DO Uribe Stephanie Marie: PERFORM Event Display: FCM Outpt Note Authored Date: Chief Complaint stomach pain thurs across upper stomach, took tums didnt help, up all night eased up @230am, dark urine. just tired after low grade temp thurs. sweaty woke up. fine today just the sweating staying. dull RODRÍGUEZ friday. has kidney issues. pain in back History of Present Illness 78 yo female presenting to the office for acute visit night, went to friend's house for dinner returned home and went to bed around 10:30pm, felt possibly indigestion, took Tums (typically worksin about 10 min) but no improvement felt abdominal distension, severe non-radiating epigastric pain; took second dose ofTums at 11pm w/o benefit 11:30pm got out of bed due to the severe pain and worked on puzzle at 2:30 am pain started to subside, so went back to bed also reports + sweats and felt subjective fever slept 2:30am until about 8:15 am --> woke up, had 2 sips of coffee but felt off went back to bed and slept all Friday had really dark urine (not black but very dark) woke up again Friday AM w/ low grade RODRÍGUEZ drank a lot of fluids to try to hydrate no recurrent severe abdominal pain butSat, Friday, and today have had episode of sweatiness last night urine color returned to normal right flank/back pain --> intermittent hard/lump feeling does have hx ofchronic tinnitus, had 10 minute episode of change in tinnitus during this episode (fan sound) tinnitus has returned to baseline no arm pain, lightheadedness, dizziness, or vomiting no dysuria, hematuria, urinary frequency, urinary retention no CP or SOB no recent weight changes no skin color changes/rash has hx ofkidney issues/hematuria Physical Exam Vitals & Measurements HR:66(Monitored) RR:17 BP:122/68 SpO2:99% HT:165cm WT:104.000kg(Dosing) WT:104kg BMI:38.2 PHQ2 Data(Data Documented on:12/15/2023 11:17) Emotional health assessment NEGATIVE GENERAL: No acute distress. Well developed and well nourished. Vital signs reviewed as above. EYES: EOMI. Anicteric sclerae. HENT: Moist mucous membranes. RESPIRATORY: Clear to auscultation bilaterally.No wheezing, rales, orrhonchi. CARDIOVASCULAR: Regularrate and rhythm.No murmurs. ABDOMEN: Soft. Non-distended. + right sided abdominal tenderness to palpation.Normal bowel sounds. No gross flank tenderness to percussion but notes area of intermittent pain/bulge at right flank. No bulge palpated on exam. EXTREMITIES: No gross deformities. SKIN: Warm, dry. No jaundice. NEUROLOGIC: Alert and oriented. Normal speech. No gross focal neurological deficits. PSYCHIATRIC: Cooperative. Appropriate mood and affect. Assessment/Plan 1.Abdominal pain Undiagnosedproblem Goal:Resolution Data:unique tests ordered:CBC,CMP,UA STATCT abd/pelvisw/ and w/o contrast EKGcompleted in office Plan: Patient with episode of very severe epigastric abdominal pain w/ associated dark urine, nausea, and sweating/subjective fever that started 3-4 days ago. The abdominal pain has resolved but she continues to have right flank pain and has not returned to baseline. Labs and imaging ordered as noted above. Further plan pending results of testing. Patient advised that if she were to have recurrence of the severe abdominal pain, she should be seen in the ER for urgentevaluation. Inclusive of time spent reviewing the medical record, [id number]-[id number] time with the patient, and time spent in documentation, the total time spent on this encounter today was 45 minutes. Problem List/Past Medical History Ongoing Antibiotic prophylaxis recommended Asthma flare Carpal tunnel syndrome| Status: Inactive Colon polyps Elevated hematocrit Family history of colon cancer Generalized osteoarthritis Health care maintenance Hematuria History of actinic keratoses History of adenomatous polyp of colon Hyperlipidemia Hypertriglyceridemia IGT (impaired glucose tolerance) Inflamed seborrheic keratosis Lentigo Lipoma Lumbar strain Menopausal and perimenopausal disorder Morbid obesity Osteoarthritis of right knee Osteoarthrosis of the carpometacarpal joint of the thumb PALPITATIONS| Status: Inactive Primary osteoarthritis of left knee Pulmonary nodule Right medial knee pain Rosacea S/P total knee replacement Seborrhea Seborrheic keratoses Senile hyperkeratosis Status post bilateral knee replacements Sun-damaged skin Tinnitus, right ear Urticaria Resolved Acute sinusitis Bilateral cataracts CMC arthritis Hematoma of ear Otalgia of right ear VITAMIN D DEFICIENCY Procedure/Surgical History Mammography| Service Date: 04/26/2022US doppler scan of kidney| Service Date: 2Diagnostic colonoscopy| Service Date: 03/13/2020Mammogram| Service Date: 02/10/2020Mammogram| Service Date: 01/19/2019History of left total knee replacement| Service Date: 06/11/2018Mammogram| Service Date: 12/25/2017Mammogram| Service Date: 12/11/2016Colonoscopy| Service Date: 08/21/2016Mammogram| Service Date: 10/25/2015Total knee arthroplasty| Service Date: 08/16/2015Chest x-ray| Service Date: 08/04/2015Mammogram - screening| Service Date: 10/06/2014Carpal tunnel release| Service Date: 06/28/2014Mammogram - screening| Service Date: 09/16/2013Colonoscopy a bnormal| Service Date: 07/07/2013mammogram| Service Date: 09/15/2012Colonoscopy| Service Date: 04/10/2010left carpal tunnel release| Service Date: 06/22/2009Hip replacement| Service Date:2009DEXA - Dual energy X-ray photon absorptiometry| Service Date: 06/19/2005colonoscopy normal| Service Date: 03/15/2005Cataract extraction, insertion of intraocular lens and trabeculectomy|Service Date: 05/22/2004Cataract extraction, insertion of intraocular lens and trabeculectomy| Service Date: 09/09/2003TAH/BSO| Service Date: 02/20/2001BTL| Service Date: 1979 Medications albuterol(albuterol CFC free 90 mcg/inh MDI), 2 puff, inhaled, qid, PRN, 3 refills amoxicillin(Amoxil 500 mg oral tablet), 500 mg= 1 tab, PO, bid cholecalciferol(Vitamin D3), 2000 Int_Unit, PO, Daily ezetimibe(Zetia 10 mg oral tablet), 10 mg= 1 tab, PO, Daily, 3 refills ketoconazole topical(ketoconazole 2% topical cream), 1 appl, topical, bid, 1 refills multivitamin(Vitamin B Complex), PO, Daily polycarbophil(FiberCon 625 mg oral tablet), 1 tab, PO, Daily Allergies AugmentinRash Crestorcough, Rosuvastatin Pravastatin Sodiumstomach cramps ZyrTECsedation caffeinemigraines, paresthesias lovastatinMyalgias sulfa drugshives Social History Smoking Status Never smoked cigarettes Alcohol Use:Current Type:Wine Frequency:Daily Average drinks per episode in last year:2 - Comments: Discussed increased risk of BR CA with ETOH Employment/School - No Risk Status:Retired 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 Arthritis: Sister and Sister. Luna's palsy: Daughter. CAD - Coronary artery disease: Mother. Cancer: Brother. Cardiovascular disease: Sister. Colon cancer..: Father (Dx at 86 years). High Blood Pressure: Mother. Osteoarthritis: Sister. Pancreas: Negative: Mother, Father, Sister, Sister, Sister, Brother, Daughter, Son and PGF. Health Status Family Member(s) Family Member(s) Relationship: Mother, Age: 79 Years, Cause: transfusion reaction Relationship: Father, Name: , Age: 88 Years, Cause: Colon CA Relationship: PGF, Age: Unknown, Cause: renal cell CA, smoker Immunizations Vaccine Date Status SARS-CoV-2 (COVID-19) mRNA-1273 vaccine 02/09/2021 Recorded SARS-CoV-2 (COVID-19) mRNA-1273 vaccine 07/23/2020 Recorded Comments : [facility] SARS-CoV-2 (COVID-19) mRNA-1273 vaccine 07/23/2020 Recorded Comments : 2021-02-07: Historical information-source unspecified SARS-CoV-2 (COVID-19) mRNA-1273 vaccine 06/18/2020 Recorded Comments : [facility] SARS-CoV-2 (COVID-19) mRNA-1273 vaccine 06/18/2020 Recorded Comments : 2021-02-07: Historical information-source unspecified tetanus/diphtheria/pertuss, acel (Tdap) 02/14/2020 Recorded zoster vaccine, inactivated 03/23/2019 Recorded zoster vaccine, inactivated 03/23/2019 Recorded zoster vaccine, inactivated 03/23/2019 Recorded Comments : 2019-08-11: Historical information-source unspecified zoster vaccine, inactivated 12/02/2018 Given hepatitis B adult vaccine 06/26/2015 Recorded hepatitis B adult vaccine 02/23/2015 Recorded hepatitis B adult vaccine 01/24/2015 Recorded pneumococcal 13-valent vaccine 10/06/2014 Given pneumococcal 23-valent vaccine 09/25/2009 Recorded tetanus/diphtheria/pertuss, acel (Tdap) 06/01/2009 Recorded pneumococcal 23-valent vaccine 05/28/2009 Recorded Comments : 2019-08-11: Historical information-source unspecified zoster vaccine live 01/20/2009 Recorded hepatitis A adult vaccine 05/14/2003 Recorded hepatitis A adult vaccine 10/15/2002 Recorded Recommendations Health Maintenance Pending(in the next year) Due Adult Influenza Vaccine due11/23/23and every 1year Adult COVID-19 Vaccination due12/15/23Unknown Frequency Adult Social Determinants of Health Screening due12/15/23Unknown Frequency Medicare Annual Wellness Visit due12/15/23and every 1year Satisfied(in the past 1 year) Satisfied Body Mass Index on12/15/23.Satisfied by CONNIE Barrera Emma Breast Cancer Screening on05/05/23.Satisfied by JE Harvey Lynnae Lipid Screening on02/04/23.Satisfied by Contributor_system, [email or web address] Electronic Signature on File Electronically Reviewed/Signed by: Apple Uribe DO Author Signature Dt/Tm:12/15/2023 12:36 PM Department of Family Medicine B * DO Uribe Stephanie Marie: PERFORM Event Display: FCM Outpt Note Authored Date: [id number] abd/pelvis report, "findings are concerning for an early acute appendicitis. Surgical consultation recommended." I personally called patient and notified her of the results, recommend that she go to the ER for further evaluation and management. Patient acknowledges and will go to the ER; she states that her will drive her. I called [facility] ER and provided hand-off/report. Electronic Signature on File Electronically Reviewed/Signed by: Apple Uribe DO Author Signature Dt/Tm:12/15/2023 03:28 PM Department of Family Medicine SMB Patient Care team information Care Team Personnel Name: MD Roman, Jon Robert Position: Physician - Family Med Member Role: Lifetime Relationship Address: [address] [place] [address] [place] Name: MD Juli, Mac Julio Position: Physician - Family Med Member Role: Primary Care Provider Address: [address] [place] [address] [place] Name: KEVIN Biggs Samantha Position: Nurse Pract - Urology Member Role: Lifetime Relationship Address: [address] [place] [phone] Care Team Related Persons Name: STEPHANIE ESQUEDA Name: STEPHANIE ESQUEDA
--- OUTSIDE RECORDS SUMMARY | 2024-02-26 15:36 | External Medical Summary | Continuity of Care Document ---
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 Role Phone Mac Bustos Primary Care Physician [phone] Encounter [facility] [id number] Date(s): 12/15/23 - 12/15/23 [facility] 0 [facility] 207 [facility] [address] [address] [place] [phone] Encounter Diagnosis Body mass index [BMI] 38.0-38.9, adult(Discharge Diagnosis) - 12/15/23 Abdominal pain(Discharge Diagnosis) - 12/15/23 Discharge Disposition: Home or Self Care Attending Physician: DO Uribe Stephanie Marie Allergies, Adverse Reactions, Alerts Substance Criticality Severity Reaction Reaction Severity Status lovastatin Myalgias Active ZyrTEC sedation Active caffeine migraines, paresthesias Active sulfa drugs hives Active Augmentin Rash Active Crestor cough Rosuvastatin Active Pravastatin Sodium stomach cramps Active Assessment and Plan Extracted from: Title:Office [...] of time spent reviewing the medical record, riqi-jj-tzvf time with the patient, and time spent [...] that her will drive her. I called [facility] and provided hand-off/report. Immunizations Given and [...] Comment: 2021-02-07: Historical information-source unspecified 3Result Comment: [facility] 4Result Comment: 2021-02-07: Historical information-source unspecified 5Result Comment: 2019-08-11: Historical information-source unspecified 6Result Comment: 2019-08-11: Historical information-source unspecified Medications albuterol CFC free 90 mcg/inh MDI Start: 09/15/23 5:22:00 PM EDT, 2 puff, inhaled, qid, Disp# 8 g, Refills: 3, PRN: as needed for wheezing, Pharmacy: [facility] Start Date: 09/15/23 Status: Ordered Amoxil 500 mg oral tablet Start: 09/15/23 5:21:00 PM EDT, 1 tab, PO, bid, Disp# 20 tab, Refills: 0, Pharmacy: [facility] Start Date: 09/15/23 Stop Date: 09/25/23 Status: Ordered FiberCon 625 mg oral tablet Start: 03/28/11 11:29:00 AM EDT, 1 tab, PO, Daily Start Date: 03/28/11 Status: Ordered ketoconazole 2% topical cream Start: 04/24/22 8:25:00 AM EST, 1 appl, topical, bid, Disp# 30 g, Refills: 1, To rash on face BID, Pharmacy: [facility] Start Date: 04/24/22 Status: Ordered Vitamin B [...] Daily, Disp# 90 tab, Refills: 3, Pharmacy: [facility] Start Date: 09/09/22 Stop Date: 09/04/23 Status: Ordered Mental Status 12/15/23 Barriers to Learning one year None evide nt Mandatory Health Literacy Documentation Yes Health Literacy Communication Barriers N ever Primary Language Ugandan Problem List Condition Confirmation Course Effective Dates [...] of time spent reviewing the medical record, [id number] time with the patient, and time spent [...] ETOH Employment/School - No Risk Status:Retired 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 Surgical consultation recommended." I personally called patient and notified her of the results, recommend that she go to the ER for further evaluation and management. Patient acknowledges and will go to the ER; she states that her will drive her. I called [facility] ER and provided hand-off/report. Electronic Signature on File Electronically Reviewed/Signed by: Apple Uribe DO Author Signature Dt/Tm:12/15/2023 03:28 PM Department of Family Medicine SMB Patient Care team information Care Team Personnel Name: MD Roman, Jon Robert Position: Physician - Family Med Member Role: Lifetime Relationship Address: [address] [place] [address] [place] Name: MD Juli, Mac Julio Position: Physician - Family Med Member Role: Primary Care Provider Address: [address] [place] [address] [place] Name: KEVIN Biggs Samantha Position: Nurse Pract - Urology Member Role: Lifetime Relationship Address: [address] [place] [id number] Care Team Related Persons Name: STEPHANIE ESQUEDA Name: STEPHANIE ESQUEDA
--- NOTE | 2024-02-26 16:35 | Electrocardiogram Report ---
Test Reason : Blood Pressure : */* mmHG Vent. Rate : 71 BPM Atrial Rate : 71 BPM P-R Int : 156 ms QRS Dur : 96 ms QT Int : 424 ms P-R-T Axes : 19 -37 59 degrees QTcB Int : 460 ms Sinus rhythm with occasional Premature ventricular complexes Left axis deviation Abnormal ECG When compared with ECG of 04-Aug-2015 09:53, Premature ventricular complexes are now Present Premature atrial complexes are no longer Present Confirmed by Enrique Victor ([id number]) on 02/26/2024 4:34:45 PM Referred By: REFERRED SELF Confirmed By: Enrique Victor
[2024-02-26] MEDS: PANTOprazole 40 MG in SYRINGE 0 ML IV ONE (19:22)
--- NOTE | 2024-02-26 19:29 | History & Physical Report ---
Date of Service February 26, 2024 Assessment & Plan (1) Sclerosing mesenteritis: Plan: Currently pain free following magnesium infusion. Plan to monitor overnight for recurrence of pain. No obstructive concern on imaging. Consider prednisone if symptoms not suspected due to duodenitis. Consult gastroenterology (2) Duodenitis: Plan: Pantoprazole 40mg IV BID Consult GI to consider EGD to assess for duodenitis vs. mesenteritis (3) Abnormal CT of the abdomen: Plan: Although she reports her pain was similar to her previous appendicitis and she has a 3 cm tubular fluid-filled structure on CT she has no pain in this region and I would not expect appendicitis pain to have spontaneously resolved Surgical consult deferred at this time (4) Hyponatremia: Plan: Suspect nutritional as not eating and drinking and will continue with NSS started in the ER Urine Na / osm to assess for SIADH (5) Hypomagnesemia: Plan: Mg level 1.5 on admission 1g IV, repeat with AM labs Plan VTE prophylaxis - Lovenox 40 mg subcu daily Diet - NPO Disposition - observation on [facility] Admission and Anticipated Discharge Date Admission Date: February 26, 2024 History of Present Illness Chief Complaint: Abdominal pain Primary Care Provider: Mac Bustos Lissette Galvez is a 78 year old female who presents to the ER due to abdominal deonna n. She reports initial symptoms started 3 days ago with generalized abdominal pain occurring in spasms, sharper on the right side, severity 8 out of 10 at worst, currently not in pain since she had a magnesium infusion in the ER. Associated nausea and vomiting. No change in bowels, melena or hematochezia. No chest pain, shortness of breath, respiratory or acute urinary symptoms. No fever or chills. She reports this feels similar to when she had appendicitis in November although on that occasion it was much more severe. Allergies Allergy/AdvReac Type Severity Reaction Status Date / Time clavulanic acid Allergy Intermediate RASH Verified 02/26/24 16:11 Sulfa (Sulfonamide Allergy Intermediate HIVES Verified 02/26/24 16:11 Antibiotics) amoxicillin [From Augmentin] Allergy Mild Hives Unverified 02/26/24 16:11 caffeine AdvReac Intermediate PALPITATIONS, Verified 02/26/24 16:11 NUMBNESS IN EXTREMITIES, MIGRANES [id number] Reductase AdvReac Muscle Verified 02/26/24 16:11 Inhibitor aches, rash, cough Home Medications Medication Instructions Recorded Confirmed Type calcium polycarbophil 625 mg 1 tab PO QAM 05/27/18 02/26/24 History tablet (FiberCon) cholecalciferol (vitamin D3) 50 2,000 unit PO QAM 05/27/18 02/26/24 History mcg (2,000 unit) capsule (Vitamin D3) vitamin B complex 1 tab PO QAM 05/27/18 02/26/24 History Past Med/Surg History Problem List (Updated 02/27/24 @ 02:29 by Jon Steiner MD) Abnormal CT of the abdomen Duodenitis Sclerosing mesenteritis Hyponatremia (Acute) Hypomagnesemia (Acute) Nausea & vomiting (Acute) Abdominal pain (Acute) 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 HAS NOT USED FOR ~ 5 MONTHS. Surgical History (Updated 01/15/24 @ 00:06 by Kenny Polk) Nausea and vomiting after administration of anesthetic agent single episode, also strong family hx History of cataract surgery R/L History of hysterectomy TOTAL BSO History of total hip arthroplasty R/L History of total knee replacement RIGHT H/O hand surgery RIGHT HAND FINGER JOINT REPLACEMENT Family History Father Family hx of colon cancer Social History Smoking Status: Never smoker Second Hand Exposure: No; Do You Dip or Chew Tobacco: No; Hx Alcohol Use: Yes Alcohol type: beer and wine Hx Substance Use: No Preferred Language: Slovak Communication Ability: Effective Visual Impairment: No Limitations [employer] Paralegal Required: No Beliefs That Will Affect Care: None marital status: Current Living Situation: Spouse Other Information That Helps Us Care for You: No Feels Safe at Home: Yes Safety Concerns: Feels Safe At This Time Assistive Devices: None Review of Systems Review of Systems: All systems reviewed & are unremarkable except as noted in HPI & below Physical Exam Constitutional: well developed; + not well nourished and no acute distress ENMT: external ear and nose normal, oropharynx normal Respiratory: normal respiratory effort, lungs clear to auscultation Cardiovascular: RRR, no murmur, no edema Gastrointestinal (Abdomen): normal bowel sounds, soft, nontender, no hepatosplenomegaly Musculoskeletal: no cyanosis or clubbing, extremities motor strength 5/5 Skin: no rashes, warm and dry Neurologic: moves all extremities and awake; not confused Psychiatric: A+Ox3, euthymic affect Results & Data Results & Data Vital Signs (Past 12 Hours) Vital Signs Temp Pulse Pulse Resp BP BP Pulse Ox 02/26/24 18:39 68 21 02/26/24 18:24 64 17 02/26/24 17:57 63 15 143/90 H 02/26/24 17:03 67 13 02/26/24 16:57 66 19 02/26/24 16:48 65 02/26/24 15:30 147/82 H 02/26/24 15:21 65 18 02/26/24 15:00 68 18 95 02/26/24 14:33 65 19 95 02/26/24 14:30 159/81 H 02/26/24 14:27 70 22 93 02/26/24 14:06 66 13 95 02/26/24 14:06 149/81 H 02/26/24 14:06 149/81 H 02/26/24 14:00 61 20 149/81 H 95 02/26/24 13:30 90 19 94 02/26/24 13:03 62 02/26/24 13:00 66 19 96 02/26/24 12:30 67 12 95 02/26/24 12:28 65 16 160/63 H 95 02/26/24 12:27 160/63 H 02/26/24 12:27 160/63 H 02/26/24 12:03 65 12 96 02/26/24 12:00 66 6 L 95 02/26/24 11:30 65 12 02/26/24 11:24 64 20 148/63 H 02/26/24 11:21 148/63 H 02/26/24 11:21 148/63 H 02/26/24 11:21 148/63 H 02/26/24 11:21 63 20 148/63 H 97 02/26/24 09:44 20 02/26/24 09:34 37.1 C 69 18 162/73 H 95 O2 Del Method 02/26/24 18:39 02/26/24 18:24 02/26/24 17:57 02/26/24 17:03 02/26/24 16:57 02/26/24 16:48 02/26/24 15:30 02/26/24 15:21 02/26/24 15:00 02/26/24 14:33 02/26/24 14:30 02/26/24 14:27 02/26/24 14:06 02/26/24 14:06 02/26/24 14:06 02/26/24 14:00 Room Air 02/26/24 13:30 02/26/24 13:03 02/26/24 13:00 02/26/24 12:30 02/26/24 12:28 Room Air 02/26/24 12:27 02/26/24 12:27 02/26/24 12:03 02/26/24 12:00 02/26/24 11:30 02/26/24 11:24 02/26/24 11:21 02/26/24 11:21 02/26/24 11:21 02/26/24 11:21 Room Air 02/26/24 09:44 02/26/24 09:34 Room Air Laboratory Results Abnormal lab results 02/26/24 02/26/24 Range/Units 11:01 Unknown WBC 15.49 H (4.8-10.8) K/ul Neut # (Auto) 13.00 H (1.40-6.50) K/uL [place] # (Auto) 0.93 H (0.11-0.59) K/uL Sodium 128 L (136-145) mmol/L Chloride 94 L (98-107) mmol/L Glucose 125 H (70-99(Fasting)) mg/dl Magnesium 1.5 L (1.7-2.4) mg/dl Total Bilirubin 1.1 H (0.2-1.0) mg/dl Ur Specific [place] > 1.045 H (1.000-1.030) Urine Protein 1+ H (Negative) Urine Ketones 1+ H (Negative) Urine Blood 1+ H (Negative) Urine RBC (Auto) 3-5 H (0-2) /hpf U Epithel Cells (Auto) 3-5 H (0-2) /hpf Urine Bacteria (Auto) 2+ H (None Seen) Diagnostic Findings ABDOMEN AND PELVIS CT WITH IV CONTRAST CT DOSE: 1380.75 mGy.cm HISTORY: Acute onset abdominal pain with nausea and vomiting abd pain, n/v TECHNIQUE: Multiaxial CT images of the abdomen and pelvis were performed following the IV administration of 93 cc of Optiray, A dose lowering technique was utilized adhering to the principles of ALARA. COMPARISON STUDY: CT abdomen and pelvis 12/15/2023; chest CT 04/29/2023 FINDINGS: There are a few solid nodules noted within the right lung base measuring up to 9 mm which are unchanged from prior and of low clinical suspicion. No free air. Unremarkable spleen, pancreas and adrenal glands. Mildly contracted gallbladder with cholelithiasis. The liver is within normal limits. Patency of the hepatic and portal veins. Unremarkable kidneys. No hydronephrosis. Partially decompressed urinary bladder. Atherosclerosis of the aorta without aneurysm. No lymphadenopathy. Small hiatal hernia with distal esophageal wall thickening. There is additional mild circumferential wall thickening involving the third portion of the duodenum. Moderate inflammatory stranding is present within the mesenteric root centered around the patent superior mesenteric artery and third portion of the duodenum. Colonic diverticulosis. Anastomotic suture noted within the abdominal right lower quadrant. There is a 3.4 cm tubular structure within the abdominal right lower quadrant adjacent to the proximal ascending colon on image 210 series 3 measuring 8 mm transversely and appears to be fluid-filled. Unremarkable soft tissues. Bilateral hip arthroplasties. No acute fracture. IMPRESSION: 1. Nonspecific moderate inflammatory stranding within the mesenteric root centered around the patent superior mesenteric artery and third portion duodenum. Differential considerations include a nonspecific duodenitis or mesenteritis. Acute pancreatitis considered less likely. 2. Cholelithiasis without acute cholecystitis. 3. There is a 3 cm tubular fluid-filled structure within the abdominal right lower quadrant which appears similar to the abnormal appendix described on the 12/15/2023 exam. The patient has since undergone an appendectomy. Differential considerations include residual appendix versus small postoperative fluid collection. No drainable fluid collections are present. 4. No bowel obstruction or pneumoperitoneum. Medications Administered ER medications given: Normal saline at 125 mL/h Magnesium sulfate 1 g IV Pantoprazole 40 mg IV ECG Rate (beats per minute): 71 Rhythm: normal sinus Findings: + PVC Comparison ECG Date: from (August 04, 2015) Change: the following changes noted (PVCs now present, PACs no longer present) Code Status & VTE Plan Code Status Full VTE Prophylaxis Plan VTE Prophylaxis will be ordered: Yes PG Care Time/CCT Total # of Minutes Spent Total Time Spent with Patient: Total time spent is greater than 50% in coordination of care (as documented) at patient's floor/unit and/or counseling patient: Coding Level of Care Code 24609 INT INP/OBS CARE 375MIN Diagnoses Sclerosing mesenteritis K65.[address] of the abdomen R93.5 Hyponatremia E87.1 Hypomagnesemia E83.42
[2024-02-26 21:32] VITALS: RESP 16
[2024-02-27 07:32] LABS: Basophils # (auto) 0.02 K/uL (0.00-0.20); Basophils % (auto) 0.2 %; Eosinophils # (auto) 0.04 K/uL (0.00-0.50); Eosinophils % (auto) 0.3 %; Hematocrit (blood only) 39.7 % (37.0-47.0); Hemoglobin 12.9 g/dl (12.0-16.0); Immature Granulocytes # (auto) 0.08 K/uL (0.01-0.20); Immature Granulocytes % (auto) 0.7 %; Lymphocytes # (auto) 1.49 K/uL (1.20-3.40); Lymphocytes % (auto) 12.6 %; Mean Corpuscular Hemoglobin 28.7 pg (25.0-34.0); Mean Corpuscular Hgb Conc 32.5 g/dL (32.0-36.0); Mean Corpuscular Volume 88.2 fL (80.0-100.0); Mean Platelet Volume 9.8 fL (9.4-12.4); Monocytes # (auto) 0.79 K/uL (0.11-0.59); Monocytes % (auto) 6.7 %; Neutrophils # (auto) 9.36 K/uL (1.40-6.50); Neutrophils % (auto) 79.5 %; Platelet Count 225 K/uL (130-400); RDW Coefficient of Variation 12.5 % (11.5-14.5); RDW Standard Deviation 40.5 fL (36.4-46.3); White Blood Count 11.78 K/ul (4.8-10.8)
[2024-02-27 07:37] LABS: BUN Creatinine Ratio 17.9 (10-20); Calcium 8.3 mg/dl (8.6-10.3); Creatinine Clr Calc Pharmacy 97.5 ml/min; Magnesium 1.6 mg/dl (1.7-2.4); Potassium 3.7 mmol/L (3.5-5.1)
[2024-02-27 07:52] LABS: Thyroid Stimulating Hormone 1.09 uIu/ml (0.300-4.500)
--- NOTE | 2024-02-27 08:01 | Hospitalist Progress Note ---
Date of Service February 27, 2024 Assessment & Plan (1) Sclerosing mesenteritis: Plan: Currently pain free following magnesium infusion. Plan to monitor overnight for recurrence of pain. No obstructive concern on imaging. Consider prednisone if symptoms not suspected due to duodenitis. Consult gastroenterology Did have appendectomy in November with Dr Lassiter, pathology from that time with serosal changes but report says "changes of acute appendicitis are not seen" interestingly. 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 Reports feeling alright today, hungry, but GI saw this morning/attempting to get in for EGD today and will remain NPO for now. IVF changed to D5NS lower rate given SIADH and Na 129 and will monitor. WBC trending down. Additional 1gm IV magnesium for mag 1.6 to be provided. ?was she having adhesions from her appendectomy leading to possible obstruction prior to admission? Lactic wnl 1.1 and was reporting moving bowels while having episodes of bilious vomiting. Does have cholelithiasis on CTAP imaging but no overt RUQ discomfort and TB slight elevation but all other LFTs wnl. Monitor exam/labs on repeat. Appreciate recs/assistance from GI (2) Duodenitis: Plan: Pantoprazole 40mg IV BID Consult GI to consider EGD to assess for duodenitis vs. mesenteritis as above (3) Abnormal CT of the abdomen: Plan: Although she reports her pain was similar to her previous appendicitis and she has a 3 cm tubular fluid-filled structure on CT she has no pain in this region and I would not expect appendicitis pain to have spontaneously resolved Surgical consult deferred at this time but could consider reaching out given pathology report as above (4) Hyponatremia: Plan: Suspect nutritional as not eating and drinking and will continue with NSS started in the ER Urine Na / osm to assess for SIADH Serum Osm 265 Urine Osm 901, Urine sodium 102 c/w SIADH ?cause, not on any psych medications, ?can be related to malignancies in the bowel vs mesenteritis/duodenitis IVF changed as above, lower rate Added urea BID when able to take PO Monitor BMP Appreciate GI input given duodenitis on admission imaging/mesenteritis (5) Hypomagnesemia: Plan: Mg level 1.5 on admission, 1gm IV provided and 1.6 and additional 1gm IV for today and will monitor Plan VTE prophylaxis - Lovenox 40 mg subcu daily while inpatient ordered Diet - NPO until GI able to see if able to get in for EGD today. WILL NEED OUTPT colonoscopy as well Dispo: continued inpatient stay Admission and Anticipated Discharge Date Admission Date: February 26, 2024 Supervising Physician Co-Signing Physician Notes The patient was not seen by me. The chart was reviewed. Case discussed with AR Bradley. Agree with assessment and plan Subjective Evaluated this morning, sitting up in bed. No further pain like brought her in, which was lower abdomen across the bottom as well as along the midline up to sternum. Discussed duodenitis on imaging and GI consult. Reports was seen this morning, planning for EGD for evaluation. Discussed prior pathology didn't report appendicitis interestingly but will see if any abnormality with EGD. Interestingly reports pain improved following magnesium infusion but also discussed could have been from the protonix as well as treatment for Duodenitis. She reports she had 3 bella salad and eggplant parmesan on Friday and then vomiting that night was just food but then Friday got sick after brushing teeth and was all bile. Subsequent vomiting while moving her bowels in the evening also with bile. Hasn't really eaten anything since that time due to abdominal pain. No new antibiotics or medications and reports hasn't taken her vitamins either. Currently no fever/chills, chest pain, shortness of breath. BP up but not confused/no headache. She is hungry, would like to eat. Discussed will order liquid diet following EGD and further recs pending results. She does report she has trip planned for [facility] on Friday, hopeful to still go but will see how EGD goes/results. Father w/ hx colon cancer but worked with a lot of chemicals. Questions/concerns addressed at this time./ Physical Exam 2 Physical Exam: General: 78 yo female laying in bed, NAD, reporting hunger pains, general pallor HEENT : head atraumatic, normocephalic, mm slightly dry, trachea midline Resp: even/unlabored, slightly diminished in the bases but no wheezing/rales, on room air CV: RRR, no significant m/r/g, trace pedal edema but calves nontender, pulses present GI: +BS, slight distension but soft/no overt tenderness (some to deep palpation epigastric region), no guarding/rebound, prior surgical sites from appendectomy noted : no ness MSK/neuro: no focal deficits, no slurred speech/confusion, answering questions appropriately Psych: AOx3, cooperative with exam Results & Data Results & Data Vital Signs (Past 12 Hours) Vital Signs Temp Pulse Pulse Resp BP BP Pulse Ox 02/27/24 07:13 37.2 C 64 16 172/82 H 97 02/26/24 21:31 36.8 C 64 16 175/83 H 94 02/26/24 20:06 72 18 201/99 H O2 Del Method 02/27/24 07:13 Room Air 02/26/24 21:31 Room Air 02/26/24 20:06 Laboratory Results 02/27/24 06:25 02/27/24 06:25 Lactic 1.1 Mag 1.6 TSH 1.090 Procalcitonin 0.02 Serum Osm 265 Urine Osm 901, Urine sodium 102 PG Care Time/CCT Total # of Minutes Spent Total Time Spent with Patient: Total time spent is greater than 50% in coordination of care (as documented) at patient's floor/unit and/or counseling patient: Coding Level of Care Code 20872 SUB INP/OBS CARE 3/50MIN Diagnoses Sclerosing mesenteritis K65.[address] of the abdomen R93.5 Hyponatremia E87.1 Hypomagnesemia E83.42
[2024-02-27] MEDS: MAGNESIUM SULFATE / D5W 1 GM/100 ML BAG IV ONE (08:13)
[2024-02-27] MEDS: PANTOprazole 40 MG in SYRINGE 0 ML IV SCH (08:17)
--- NOTE | 2024-02-27 10:32 | Gastrointestinal Consultation ---
Date of Consultation February 27, 2024 Assessment & Plan (1) Duodenitis: 78 year old female with history of right knee DJD s/p knee replacement, recent appendectomy and others below admitted through the ED w/ epigastric abd pain w/ nausea/vomiting on Friday w/ persistent upper abd pain prompting ED evaluation, CT showing duodenitis vs mesenteritis vs pancreatitis - LFTs, lipase WNL. - NPO - EGD evaluation - Continue PPI therapy - Consider contacting general surgery regarding the post-operative CT findings, we are happy to arrange OP colonoscopy if indicated. We appreciate assistance in the management of any serological abnormality and corrections to include: hemoglobin >7, INR <2, platelets >50,000, potassium levels >3.5 but <5.3, and sodium levels within 5 points of the reference range prior to endoscopic evaluation. Thank you for allowing us to participate in the care of this patient. Please call with any acute changes, questions or concerns. Please see addendum below with additional recommendation from my supervising physician. I spent a total of 60 minutes on the date of service in review of patient's record, and previously obtained information in person and appropriate medical visit, discussion and education of plan, with patient and/or caregiver, placing orders for tests/referral/procedures as medically necessary and documentation of pertinent clinical information in patient's medical records for their visit today. Supervising Physician Co-Signing Physician Notes I examined the patient and reviewed patient's chart , laboratory data and imaging studies. I agree with with assessment and plan of care as suggested by advanced practice provider. Acute onset of apparent diffuse abdominal pain that lasted 3 days and was associated with vomiting. CT scan was suggestive of nonspecific mesenteritis. The patient also has gallstones which should be in the differential. Peptic ulcer disease to rule out, scheduled for EGD. Currently symptoms have resolved. History of Present Illness Reason for Consultation: duodenitis, mesenteritis Requesting Physician: Thaddeus Jeffery MD Attending Physician: Thaddeus Jeffery MD History of Present Illness 78 year old female with history of right knee DJD s/p knee replacement, recent appendectomy and others below admitted through the ED w/ epigastric abd pain w/ nausea/vomiting on Friday w/ persistent upper abd pain prompting ED evaluation. She notes pain this AM is somewhat improved. No nausea/vomiting today. Occasional reflux/regurgitation but this is not new. No dysphagia. Denies diarrhea/constipation. WBC 11 H&H 12.9/39.7 PLT 225 SAMPLE PATTERNMAKER 0.56 TB 1.1 AST 23 ALT 52 ALKP 60 Lipase 26 ETOH 1-2 drinks daily No tobacco No NSAIDs No AC CTAP 2023: Nonspecific moderate inflammatory stranding within the mesenteric root centered around the patent superior mesenteric artery and third portion duodenum. Differential considerations include a nonspecific duodenitis or mesenteritis. Acute pancreatitis considered less likely. Cholelithiasis without acute cholecystitis. . There is a 3 cm tubular fluid-filled structure within the abdominal right lower quadrant which appears similar to the abnormal appendix described on the 12/15/2023 exam. The patient has since undergone an appendectomy. Differential considerations include residual appendix versus small postoperative fluid collection. No drainable fluid collections are present. No bowel obstruction or pneumoperitoneum. CTAP 2023: Thickening and an irregular appearance to the tip the appendix with mild periappendiceal fat stranding. These findings are concerning for an early acute appendicitis. Surgical consultation recommended. There is a punctate focus of eccentric gas at the tip the appendix which is likely intraluminal. A small focus of microperforation is considered less likely but not entirely excluded. No evidence for periappendiceal abscess.Cholelithiasis. No gallbladder wall thickening.Mild hepatic steatosis. Colonic diverticulosis. No evidence for acute diverticulitis. Allergies Allergy/AdvReac Type Severity Reaction Status Date / Time clavulanic acid Allergy Intermediate RASH Verified 02/26/24 16:11 Sulfa (Sulfonamide Allergy Intermediate HIVES Verified 02/26/24 16:11 Antibiotics) amoxicillin [From Augmentin] Allergy Mild Hives Unverified 02/26/24 16:11 caffeine AdvReac Intermediate PALPITATIONS, Verified 02/26/24 16:11 NUMBNESS IN EXTREMITIES, MIGRANES [id number] Reductase AdvReac Muscle Verified 02/26/24 16:11 Inhibitor aches, rash, cough Home Medications Medication Instructions Recorded Confirmed Type calcium polycarbophil 625 mg 1 tab PO QAM 05/27/18 02/26/24 History tablet (FiberCon) cholecalciferol (vitamin D3) 50 2,000 unit PO QAM 05/27/18 02/26/24 History mcg (2,000 unit) capsule (Vitamin D3) vitamin B complex 1 tab PO QAM 05/27/18 02/26/24 History Patient History Medical History (Updated 02/27/24 @ 02:29 by Jon Steiner MD) Acute appendicitis Hypertriglyceridemia Obesity Osteoarthritis Migraine Asthma RARELY USES INHALER. HAS NOT USED FOR ~ 5 MONTHS. Surgical History (Updated 01/15/24 @ 00:06 by Kenny Polk) Nausea and vomiting after administration of anesthetic agent single episode, also strong family hx History of cataract surgery R/L History of hysterectomy TOTAL BSO History of total hip arthroplasty R/L History of total knee replacement RIGHT H/O hand surgery RIGHT HAND FINGER JOINT REPLACEMENT Family History Father Family hx of colon cancer Social History Smoking Status: Never smoker Second Hand Exposure: No; Do You Dip or Chew Tobacco: No; Hx Alcohol Use: Yes Alcohol type: beer and wine Hx Substance Use: No Preferred Language: [place] Communication Ability: Effective Visual Impairment: No Limitations Street Light Servicer Required: No Beliefs That Will Affect Care: None marital status: Current Living Situation: Spouse Other Information That Helps Us Care for You: No Feels Safe at Home: Yes Safety Concerns: Feels Safe At This Time Assistive Devices: Cane and Walker Review of Systems Review of Systems: All other findings negative except as noted in HPI. Physical Exam Constitutional: WD/WN, vitals as above Respiratory: normal respiratory effort, lungs clear to auscultation Cardiovascular: RRR, no murmur, no edema Gastrointestinal (Abdomen): Inspection/Auscultation: normal bowel sounds Percussion/Palpation: + abdomen tender and abdomen soft; no guarding and abdomen not rigid Skin: no rashes, warm and dry Results & Data Vital Signs (Past 12 Hours) Vital Signs Temp Pulse Resp BP Pulse Ox O2 Del Method 02/27/24 07:13 37.2 C 64 16 172/82 H 97 Room Air Laboratory Results 02/27/24 02/26/24 02/26/24 Range/Units 06:25 Unknown 17:05 WBC 11.78 H (4.8-10.8) K/ul RBC 4.50 (4.20-5.40) M/uL Hgb 12.9 (12.0-16.0) g/dl Hct 39.7 (37.0-47.0) % MCV 88.2 (80.0-100.0) fL MCH 28.7 (25.0-34.0) pg MCHC 32.5 (32.0-36.0) g/dL RDW Std Deviation 40.5 (36.4-46.3) fL RDW Coeff of Michelle 12.5 (11.5-14.5) % Plt Count 225 (130-400) K/uL MPV 9.8 (9.4-12.4) fL Immature Gran % (Auto) 0.7 % Neut % (Auto) 79.5 % Lymph % (Auto) 12.6 % [place] % (Auto) 6.7 % Eos % (Auto) 0.3 % Baso % (Auto) 0.2 % Neut # (Auto) 9.36 H (1.40-6.50) K/uL Lymph # (Auto) 1.49 (1.20-3.40) K/uL [place] # (Auto) 0.79 H (0.11-0.59) K/uL Eos # (Auto) 0.04 (0.00-0.50) K/uL Baso # (Auto) 0.02 (0.00-0.20) K/uL Immature Gran # (Auto) 0.08 (0.01-0.20) K/uL PT (9.0-12.0) Seconds INR (0.9-1.1) Sodium 129 L (136-145) mmol/L Potassium 3.7 (3.5-5.1) mmol/L Chloride 95 L (98-107) mmol/L Carbon Dioxide 27 (21-32) mmol/L Anion Gap 7 (3-11) BUN 10 (6-23) mg/dl Creatinine 0.56 L (0.6-1.2) mg/dl Est Cr Clr Drug Dosing 97.5 ml/min eGFR 92.78 BUN/Creatinine Ratio 17.9 (10-20) Glucose 103 H (70-99(Fasting)) mg/dl Osmolality 265 L (280-300) mOsm/kg Lactate 1.1 (0.4-2.0) mmol/L Calcium 8.3 L (8.6-10.3) mg/dl Magnesium 1.6 L (1.7-2.4) mg/dl Total Bilirubin (0.2-1.0) mg/dl AST (13-39) U/L ALT (7-52) U/L Alkaline Phosphatase (34-104) U/L Troponin I High Sens (0-14) pg/ml Total Protein (6.0-8.3) gm/dl Albumin (3.4-5.0) gm/dl Globulin (2.5-4.0) gm/dl Albumin/Globulin Ratio (0.9-2) Lipase (11-82) U/L Procalcitonin 0.02 (0-0.5) ng/ml TSH 1.090 (0.300-4.500) uIu/ml Urine Color Yellow Urine Appearance Clear (Clear) Urine pH 5.5 (4.5-7.5) Ur Specific [place] > 1.045 H (1.000-1.030) Urine Protein 1+ H (Negative) Urine Glucose (UA) Negative (Negative) Urine Ketones 1+ H (Negative) Urine Blood 1+ H (Negative) Urine Nitrite Negative (Negative) Urine Bilirubin Negative (Negative) Urine Urobilinogen Negative (Negative) Ur Leukocyte Esterase Negative (Negative) Urine WBC (Auto) 0-5 (0-5) /hpf Urine RBC (Auto) 3-5 H (0-2) /hpf U Hyaline Cast (Auto) 0-2 (0-2) /lpf U Epithel Cells (Auto) 3-5 H (0-2) /hpf Urine Bacteria (Auto) 2+ H (None Seen) Urine Osmolality 901 H (500-800) mOsm/kg Ur Random Sodium 102 mmol/L 02/26/24 Range/Units 11:01 WBC 15.49 H (4.8-10.8) K/ul RBC 4.59 (4.20-5.40) M/uL Hgb 13.3 (12.0-16.0) g/dl Hct 40.9 (37.0-47.0) % MCV 89.1 (80.0-100.0) fL MCH 29.0 (25.0-34.0) pg MCHC 32.5 (32.0-36.0) g/dL RDW Std Deviation 41.1 (36.4-46.3) fL RDW Coeff of Michelle 12.6 (11.5-14.5) % Plt Count 222 (130-400) K/uL MPV 9.6 (9.4-12.4) fL Immature Gran % (Auto) 0.6 % Neut % (Auto) 83.8 % Lymph % (Auto) 9.4 % [place] % (Auto) 6.0 % Eos % (Auto) 0.1 % Baso % (Auto) 0.1 % Neut # (Auto) 13.00 H (1.40-6.50) K/uL Lymph # (Auto) 1.45 (1.20-3.40) K/uL [place] # (Auto) 0.93 H (0.11-0.59) K/uL Eos # (Auto) 0.01 (0.00-0.50) K/uL Baso # (Auto) 0.01 (0.00-0.20) K/uL Immature Gran # (Auto) 0.09 (0.01-0.20) K/uL PT 11.2 (9.0-12.0) Seconds INR 1.0 (0.9-1.1) Sodium 128 L (136-145) mmol/L Potassium 3.8 (3.5-5.1) mmol/L Chloride 94 L (98-107) mmol/L Carbon Dioxide 28 (21-32) mmol/L Anion Gap 6 (3-11) BUN 12 (6-23) mg/dl Creatinine 0.65 (0.6-1.2) mg/dl Est Cr Clr Drug Dosing 84.0 ml/min eGFR 89.51 BUN/Creatinine Ratio 18.5 (10-20) Glucose 125 H (70-99(Fasting)) mg/dl Osmolality (280-300) mOsm/kg Lactate (0.4-2.0) mmol/L Calcium 8.8 (8.6-10.3) mg/dl Magnesium 1.5 L (1.7-2.4) mg/dl Total Bilirubin 1.1 H (0.2-1.0) mg/dl AST 23 (13-39) U/L ALT 52 (7-52) U/L Alkaline Phosphatase 60 (34-104) U/L Troponin I High Sens 8.9 (0-14) pg/ml Total Protein 7.1 (6.0-8.3) gm/dl Albumin 3.7 (3.4-5.0) gm/dl Globulin 3.4 (2.5-4.0) gm/dl Albumin/Globulin Ratio 1.1 (0.9-2) Lipase 26 (11-82) U/L Procalcitonin (0-0.5) ng/ml TSH (0.300-4.500) uIu/ml Urine Color Urine Appearance (Clear) Urine pH (4.5-7.5) Ur Specific [place] (1.000-1.030) Urine Protein (Negative) Urine Glucose (UA) (Negative) Urine Ketones (Negative) Urine Blood (Negative) Urine Nitrite (Negative) Urine Bilirubin (Negative) Urine Urobilinogen (Negative) Ur Leukocyte Esterase (Negative) Urine WBC (Auto) (0-5) /hpf Urine RBC (Auto) (0-2) /hpf U Hyaline Cast (Auto) (0-2) /lpf U Epithel Cells (Auto) (0-2) /hpf Urine Bacteria (Auto) (None Seen) Urine Osmolality (500-800) mOsm/kg Ur Random Sodium mmol/L PG Care Time/CCT Total # of Minutes Spent Total Time Spent with Patient: Total time spent is greater than 50% in coordination of care (as documented) at patient's floor/unit and/or counseling patient: Coding Level of Care Code 61676 INT INP/OBS CARE MIN Diagnoses Duodenitis K29.80
[2024-02-27] MEDS: D5NSS + 20MEQ KCL 20 MEQ/1,000 ML BAG IV SCH (10:58)
--- NOTE | 2024-02-27 13:08 | Anesthesiology Consultation ---
Date of Service February 27, 2024 Assessment & Plan Chart Review Chart Review: Acceptable Risk for Surgery and Patient NOT seen in Pre Admission Testing Consults Requested none ASA ASA2 Proposed Anesthesia Anesthesia Type: MAC Risk / Benefits Reviewed With: PT / POA / Parent / Guardian, Accepts Plan and Informed Consent Obtained History Surgery Operation Date: 02/27/24 17:10 Proposed Procedures p Esophagogastroduodenoscopy Canelo Lemos MD Height/Weight Height: 5 ft 5 in Weight: 104.1 kg Allergies Allergy/AdvReac Type Severity Reaction Status Date / Time clavulanic acid Allergy Intermediate RASH Verified 02/26/24 16:11 Sulfa (Sulfonamide Allergy Intermediate HIVES Verified 02/26/24 16:11 Antibiotics) amoxicillin [From Augmentin] Allergy Mild Hives Unverified 02/26/24 16:11 caffeine AdvReac Intermediate PALPITATIONS, Verified 02/26/24 16:11 NUMBNESS IN EXTREMITIES, MIGRANES [id number]-[id number]-TrU Reductase AdvReac Muscle Verified 02/26/24 16:11 Inhibitor aches, rash, cough Medications Home Medications Medication Instructions Recorded Confirmed Last Taken calcium polycarbophil 625 mg 1 tab PO QAM 05/27/18 02/26/24 1 Week Ago tablet (FiberCon) ~02/19/24 cholecalciferol (vitamin D3) 50 2,000 unit PO QAM 05/27/18 02/26/24 1 Week Ago mcg (2,000 unit) capsule (Vitamin ~02/19/24 D3) vitamin B complex 1 tab PO QAM 05/27/18 02/26/24 1 Week Ago ~02/19/24 Active Medications Generic Name Dose Route Start Last Admin Trade Name Freq PRN Reason Stop Dose Admin Pantoprazole Sodium 40 mg/ 10 mls @ 5 mls/min 02/27/24 09:00 02/27/24 08:17 Syringe IV 03/28/24 08:59 5 mls/min BID PRINCESS Administration Potassium Chloride/Dextrose/Sod Cl 20 meq in 1,000 mls @ 75 mls/hr 02/27/24 09:30 02/27/24 10:58 D5nss + 20meq Kcl IV 03/28/24 09:29 75 mls/hr .[id number] PRINCESS Administration NPO Date Last Intake of Fluids: 02/26/24 Time Last Intake of Fluids: 23:59 Date Last Intake of Solids: 02/26/24 Time Last Intake of Solids: 23:59 Past Medical History Medical History (Updated 02/27/24 @ 02:29 by Jon Steiner MD) Acute appendicitis Hypertriglyceridemia Obesity Osteoarthritis Migraine Asthma RARELY USES INHALER. HAS NOT USED FOR ~ 5 MONTHS. Past Family History Family History Father Family hx of colon cancer Past Surgical History Surgical History (Updated 01/15/24 @ 00:06 by Kenny Polk) Nausea and vomiting after administration of anesthetic agent single episode, also strong family hx History of cataract surgery R/L History of hysterectomy TOTAL BSO History of total hip arthroplasty R/L History of total knee replacement RIGHT H/O hand surgery RIGHT HAND FINGER JOINT REPLACEMENT Past Anesthesia History No Hx of Anesthesia Complications and No Family Hx of Anesthesia Complications History of PONV No Hx of PONV and No Hx of Motion Sickness Social History Smoking Status: Never smoker Do You Dip or Chew Tobacco: No Hx Alcohol Use: Yes Alcohol type: beer and wine alcohol intake frequency: 0-2 drinks per day Alcohol Intake Frequency Comment: 1 beer/day or 2x wine/day Hx Substance Use: No substance use type: does not use Review of Systems ROS Unobtainable: All systems reviewed & are unremarkable except as noted in HPI & below Physical Exam Vital Signs Last Vital Signs Temp 37.2 C 02/27/24 13:13 Pulse 61 02/27/24 13:13 Resp 16 02/27/24 13:13 BP 175/88 H 02/27/24 13:13 Pulse Ox 95 02/27/24 13:13 O2 Del Method Room Air 02/27/24 13:13 ENMT Mouth: no TMJ abnormality Thyromental Distance: > or= 3.5 Finger Breadths Mallampati Class: II Neck normal visual inspection and trachea midline; neck extension not limited Respiratory normal respiratory effort Auscultation: lungs clear to auscultation bilaterally Cardiovascular Rate/Rhythm: regular rate and regular rhythm Heart Sounds: no murmur Musculoskeletal Spine: normal cervical ROM Extremities: full ROM of extremities Neurologic moves all extremities Psychiatric Orientation: alert and oriented x 3 Testing Laboratory Results 02/27/24 06:25 02/27/24 06:25 PT 11.2 Seconds (9.0-12.0) 02/26/24 11:01 INR 1.0 (0.9-1.1) 02/26/24 11:01 Urine Color Yellow 02/26/24 Unknown Urine Appearance Clear (Clear) 02/26/24 Unknown Urine pH 5.5 (4.5-7.5) 02/26/24 Unknown Ur Specific [place] > 1.045 (1.000-1.030) H 02/26/24 Unknown Urine Protein 1+ (Negative) H 02/26/24 Unknown Urine Glucose (UA) Negative (Negative) 02/26/24 Unknown Urine Ketones 1+ (Negative) H 02/26/24 Unknown Urine Nitrite Negative (Negative) 02/26/24 Unknown Ur Leukocyte Esterase Negative (Negative) 02/26/24 Unknown Urine WBC (Auto) 0-5 /hpf (0-5) 02/26/24 Unknown Urine RBC (Auto) 3-5 /hpf (0-2) H 02/26/24 Unknown U Hyaline Cast (Auto) 0-2 /lpf (0-2) 02/26/24 Unknown U Epithel Cells (Auto) 3-5 /hpf (0-2) H 02/26/24 Unknown Urine Bacteria (Auto) 2+ (None Seen) H 02/26/24 Unknown Electrocardiogram Date: 02/26/24 Sinus rhythm with occasional Premature ventricular complexes Left axis deviation Abnormal ECG When compared with ECG of 04-Aug-2015 09:53, Premature ventricular complexes are now Present Premature atrial complexes are no longer Present Confirmed by Enrique Victor ([id number]) on 02/26/2024 4:34:45 PM
--- NOTE | 2024-02-27 14:38 | GI REPORT ---
[facility] Patient: KILO ESQUEDA : 1945 Sex at : Female Age: 78 Years Procedure: Upper GI endoscopy Date: 02/27/2024 Attending Physician: Anup Lemos MD Referring MD: Referred Self; Thaddeus Jeffery Indications: - Epigastric abdominal pain Medications: - Monitored Anesthesia Care Complications: - No immediate complications. Estimated Blood Loss: - Estimated blood loss: None. Procedure: - The egd scope was introduced through the mouth and advanced to the third part of the duodenum. - The upper GI endoscopy was accomplished with ease. - The patient tolerated the procedure well. Findings: - The Z-line was irregular and was found 36 cm from the incisors. - The examined esophagus was normal. There is no evidence of esophagitis or Oliveira's mucosa. - A 2 cm hiatal hernia was present. Otherwise the stomach was normal. There was no evidence of gastric ulcer or, tumor or gastritis. - The examined duodenum was normal. The duodenum was normal, there was no evidence of duodenal ulcer. Impression: - Z-line irregular, 36 cm from the incisors. - Normal esophagus. - There is no evidence of esophagitis or Oliveira's mucosa. - 2 cm hiatal hernia. - Otherwise the stomach was normal. There was no evidence of gastric ulcer or, tumor or gastritis. - Normal examined duodenum. - The duodenum was normal, there was no evidence of duodenal ulcer. - No specimens collected. Recommendation: - Observe patient's clinical course. Procedure Code(s): - 80189, Esophagogastroduodenoscopy, flexible, transoral; diagnostic, including collection of specimen(s) by brushing or washing, when performed (separate procedure) Diagnosis Code(s): - R10.13, Epigastric pain - K22.89, Other specified disease of esophagus - K44.9, Diaphragmatic hernia without obstruction or gangrene CPT(R) - 2023 copyright [employer]. All Rights Reserved. The CPT codes, CCI edits and ICD codes generated are intended as suggestions and were generated based on input data. These codes are preliminary and upon leather production machine operator review may be revised to meet current compliance and payer requirements. The provider is responsible for the final determination of appropriate codes, and modifiers. Anup Lemos M.D. , This document has been electronically signed. Note Initiated:02/27/2024 Note Completed:02/27/2024 2:38 PM [id number]
--- NOTE | 2024-02-27 14:39 | Communication Note ---
Date of Service: February 27, 2024 Upper endoscopy showed small hernia and otherwise was normal. Suspect patient's abdominal pain and vomiting could be caused by gallstones. Currently pain has resolved. Recommended to increase diet, okay to discharge from GI standpoint if patient is stable. Consideration for cholecystectomy particularly if abdominal symptoms recur.
[2024-02-27 14:44] VITALS: O2SAT 96
--- NOTE | 2024-02-27 14:47 | Anesthesiology Progress Note ---
Date of Service February 27, 2024 Anesthesia Post Procedure Vital Signs Vital Signs: Temp Pulse Pulse Resp BP BP BP 02/27/24 14:39 37.2 C 66 16 112/76 02/27/24 13:13 37.2 C 61 16 175/88 H 02/27/24 11:23 67 149/81 H 169/82 H 02/27/24 07:13 37.2 C 64 16 172/82 H 02/26/24 21:31 36.8 C 64 16 175/83 H 02/26/24 20:06 72 18 201/99 H 02/26/24 19:30 67 26 H 155/110 H 02/26/24 18:39 68 21 02/26/24 18:24 64 17 02/26/24 17:57 63 15 143/90 H 02/26/24 17:03 67 13 02/26/24 16:57 66 19 02/26/24 16:48 65 02/26/24 15:30 147/82 H 02/26/24 15:21 65 18 02/26/24 15:00 68 18 Pulse Ox O2 Del Method 02/27/24 14:39 96 Room Air 02/27/24 13:13 95 Room Air 02/27/24 11:23 97 Room Air 02/27/24 07:13 97 Room Air 02/26/24 21:31 94 Room Air 02/26/24 20:06 02/26/24 19:30 02/26/24 18:39 02/26/24 18:24 02/26/24 17:57 02/26/24 17:03 02/26/24 16:57 02/26/24 16:48 02/26/24 15:30 02/26/24 15:21 02/26/24 15:00 95 Pain Intensity Abdomen: Pain Intensity: 6 Transfer of Care Handoff Completed per policy Notes Mental Status: alert / awake / arousable Patient Amnestic to Procedure: Yes Nausea / Vomiting: adequately controlled Pain: adequately controlled Airway Patency, RR, SpO2: stable & adequate BP & HR: stable & adequate Hydration State: stable & adequate Anesthetic Complications: no major complications apparent and Pt Satisfied with anesthetic care
[2024-02-27 15:28] VITALS: BP 176/76; TEMP 99.1
[2024-02-27] MEDS: LIDOCAINE 2% 2 ML VIAL/AMP(20MG/ML) INFIL ONE (15:29)
[2024-02-27] MEDS: PROPOFOL IV EMULSION 10 MG/ML 20 ML VIAL IV ONE (15:29)
--- NOTE | 2024-02-27 16:13 | Discharge Summary ---
Discharge Summary Date of Service February 27, 2024 Principal Dx & Hospital Course #1 = Principal Diagnosis (1) Sclerosing mesenteritis: Currently pain free following magnesium infusion. Plan to monitor overnight for recurrence of pain. No obstructive concern on imaging. Consider prednisone if symptoms not suspected due to duodenitis. Consult gastroenterology Did have appendectomy in November with Dr Lassiter, pathology from that time with serosal changes but report says "changes of acute appendicitis are not seen" interestingly. 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 Reports feeling alright today, hungry, but GI saw this morning/attempting to get in for EGD today and will remain NPO for now. IVF changed to D5NS lower rate given SIADH and Na 129 and will monitor. WBC trending down. Additional 1gm IV magnesium for mag 1.6 to be provided. ?was she having adhesions from her appendectomy leading to possible obstruction prior to admission? Lactic wnl 1.1 and was reporting moving bowels while having episodes of bilious vomiting. Does have cholelithiasis on CTAP imaging but no overt RUQ discomfort and TB slight elevation but all other LFTs wnl. Monitor exam/labs on repeat. Appreciate recs/assistance from GI s/p EGD, no acute findings. Per GI, could have had sx from gallstones but ok for discharge if tolerates advancement of diet. Consideration for cholecystectomy particularly if abd s recur and discussed with patient she can discuss possible HIDA w/ EF with PCP in follow up but cautious intake of fried/spicy/fatty foods. Interestingly when discussing sx of GB disease which were not the same as present, she reports the sx when came in for appendix sound more like GB origin and she loves spicy/fatty foods and eats lots of cheeses but never had any issues in the past but discussed does have stones and may develop issues in the future. (2) Duodenitis: Pantoprazole 40mg IV BID Consult GI to consider EGD to assess for duodenitis vs. mesenteritis as above (3) Abnormal CT of the abdomen: Although she reports her pain was similar to her previous appendicitis and she has a 3 cm tubular fluid-filled structure on CT she has no pain in this region and I would not expect appendicitis pain to have spontaneously resolved Surgical consult deferred at this time but could consider reaching out given pathology report as above (4) Hyponatremia: Suspect nutritional as not eating and drinking and will continue with NSS started in the ER Urine Na / osm to assess for SIADH Serum Osm 265 Urine Osm 901, Urine sodium 102 c/w SIADH ?cause, not on any psych medications, ?can be related to malignancies in the bowel vs mesenteritis/duodenitis IVF changed as above, lower rate Added urea BID when able to take PO Monitor BMP Appreciate GI input given duodenitis on admission imaging/mesenteritis (5) Hypomagnesemia: Mg level 1.5 on admission, 1gm IV provided and 1.6 and additional 1gm IV for today and will monitor Plan VTE prophylaxis - Lovenox 40 mg subcu daily while inpatient ordered Diet - NPO until GI able to see if able to get in for EGD today. WILL NEED OUTPT colonoscopy as well Dispo: continued inpatient stay Admission HPI Per Admitting Provider Lissette Galvez is a 78 year old female who presents to the ER due to abdominal pain. She reports initial symptoms started 3 days ago with generalized abdominal pain occurring in spasms, sharper on the right side, severity 8 out of 10 at worst, currently not in pain since she had a magnesium infusion in the ER. Associated nausea and vomiting. No change in bowels, melena or hematochezia. No chest pain, shortness of breath, respiratory or acute urinary symptoms. No fever or chills. She reports this feels similar to when she had appendicitis in November although on that occasion it was much more severe. Discharge Exam General: 78 yo female laying in bed, NAD, reporting hunger pains, general pallor HEENT : head atraumatic, normocephalic, mm slightly dry, trachea midline Resp: even/unlabored, slightly diminished in the bases but no wheezing/rales, on room air CV: RRR, no significant m/r/g, trace pedal edema but calves nontender, pulses present GI: +BS, slight distension but soft/no overt tenderness (some to deep palpation epigastric region), no guarding/rebound, prior surgical sites from appendectomy noted : no ness MSK/neuro: no focal deficits, no slurred speech/confusion, answering questions appropriately Psych: AOx3, cooperative with exam Discharge Plan Discharge Items Reason For Visit: DUODENITIS/MESENTERITIS Follow-up/Referrals: Mac Bustos [Primary Care Provider] - Medications and DC Order Prescriptions: No Action vitamin B complex Tablet 1 tab PO QAM cholecalciferol (vitamin D3) [Vitamin D3] 2,000 unit Capsule 2,000 unit PO QAM calcium polycarbophil [FiberCon] 625 mg Tablet 1 tab PO QAM Admission Data Admit Date/Time: 02/26/24 19:22 Attending Provider: Thaddeus Jeffery Admit Provider: Jon Steiner Primary Care Provider: Mac Bustos Other Providers: Jon Steiner; Anup Lemos Hospital Stay Data Consultations 02/26/24 17:24 ED Decision to Admit Stat 02/26/24 21:47 Consult Gastroenterology Routine Procedures Performed Operation Date: 02/27/24 17:10 Actual Procedures p Esophagogastroduodenoscopy - Anup Lemos MD Diagnostic Imagining Performed 02/26/24 10:41 CT abd pelvis IV con only Stat Coding Diagnoses Sclerosing mesenteritis K65.[address] of the abdomen R93.5 Hyponatremia E87.1 Hypomagnesemia E83.42
--- NOTE | 2024-02-27 16:50 | Discharge Summary ---
Discharge Summary Date of Service February 27, 2024 Principal Dx & Hospital Course #1 = Principal Diagnosis (1) Sclerosing mesenteritis: 78 yo female presented for abdominal pain starting 3 days prior to admission following eating eggplant par[place] and 3 bella soup with emesis c/w food that evening but subsequent emesis with BILE x2 the following two days and felt like band across lower abdomen and epigastric region prompting ER evaluation/admission CTAP noting Nonspecific moderate inflammatory stranding within the mesenteric root centered around the patent superior mesenteric artery and third portion duodenum. ? nonspecific duodenitis or mesenteritis. NO obstruction. Lipase wnl 26 and doubt pancreatitis but did report epigastric discomfort on admission Notable, DOES have evidence for cholelithiasis without acute cholecystitis. LFTs wnl. NO RUQ on examination by myself 02/26 ? passed stone, ?pain from GB disease -- she reports interestingly symptoms of GB disease when in for her appendix in November with Dr Lassiter. CTAP does note 3cm fluid filled structure within RLQ similar to abnormal appendix but did have appendectomy and ?residual appendix vs small post- operative fluid collection. As discussed with patient, prior pathology from that time noting serosal adhesions but changes of acute john not seen and ?if related to GB at that time. ?residual appendix -- no further RLQ pain on exam Placed on PPI IV BID, NPO and GI consultation undertaken s/p EGD with Dr Lemos 02/26, small hernia but otherwise normal. Suspect as well patient's abdominal pain and vomiting could be caused by gallstones and currently pain free and ok for dc from GI standpoint but consideration for cholecystectomy particularly if abdominal symptoms recur. Discussed would rec she have c-scope outpt given father w/ hx colon ca. GI to arrange Rx for pepcid daily and would avoid excessive spicy/fried/fatty foods and if sx recur to return to ER but otherwise can have outpatient follow up for discussion with PCP about possible HIDA w/ EF to eval for underlying chronic cholecystitis. Recommend she have follow up lab testing with PCP to ensure Na level normal. Urine/serum studies c/w SIADH but not on any medications to cause and benefit from further workup outpatient but not having any sx at present from low sodium and was low back in November as well. (2) Duodenitis: Pantoprazole 40mg IV BID on admission and consulted GI as above but EGD w/o evidence for such but given pain free per GI can advance diet and discharge if tolerating without issues. Pepcid daily given hernia for GI proph at [place] (3) Abnormal CT of the abdomen: Although reported her pain was similar to her previous appendicitis and she has a 3 cm tubular fluid-filled structure on CT she has no pain in this region and I would not expect appendicitis pain to have spontaneously resolved Interestingly, pathology report not indicating findings consistent with acute appendicitis at that time and again suspect possible underlying gallbladder disease given stones but not acute/no RUQ ain but rec HIDA outpatient Consider reaching back out to Dr lassiter if concerns for residual appendix however again doubt currently acute as no RLQ pain on exam. Discussed w/ JONES and recs patient can have f/u after outpt HIDA scan and they can look at CTAP at that time as well if any ongoing issues (4) Hyponatremia: Suspect nutritional as not eating and drinking for several days with nausea/vomiting. ?uncontrolled pain, Na improved 128--> 129, not having symptoms from such Prior lows 133/134 in November w/ acute appendicitis Continued NSS on admission, checked Urine Na / osm to assess for SIADH Serum Osm 265. Urine Osm 901, Urine sodium 102 -- c/w SIADH ?cause, not on any psych medications, ?can be related to malignancies in the bowel vs mesenteritis/duodenitis Rec outpt c-scope as above, HIDA as above to look at EF (5) Hypomagnesemia: Mg level 1.5 on admission and 1gm IV provided but still low/additional IV replacement ordered while NPO/prior to discharge Not on any PPI at baseline, ?2nd to poor PO intake VTE prophylaxis - Lovenox 40 mg subcu daily while inpatient ordered, no evidence for DVT Notes For Next Care Provider Consider HIDA w/ EF to eval underlying chronic cholecystitis Ensure outpatient follow up for colonoscopy given family hx colon ca in father (although patient reports due to work/environmental exposure to chemicals) but given prior pathology when in with "acute appendicitis" not noting findings consistent with acute appendicitis but noting scleral adhesions Would repeat BMP to ensure Na level normalizes but asymptomatic and urine/serum studies consistent with SIADH but no underlying SSRI. TSH wnl and consider further work-up. Medication Changes From Visit Pepcid PO once daily Admission HPI Per Admitting Provider Lissette Galvez is a 78 year old female who presents to the ER due to abdominal pain. She reports initial symptoms started 3 days ago with generalized abdominal pain occurring in spasms, sharper on the right side, severity 8 out of 10 at worst, currently not in pain since she had a magnesium infusion in the ER. Associated nausea and vomiting. No change in bowels, melena or hematochezia. No chest pain, shortness of breath, respiratory or acute urinary symptoms. No fever or chills. She reports this feels similar to when she had appendicitis in November although on that occasion it was much more severe. Admission Exam Per Admitting Provider Constitutional: well developed; + not well nourished and no acute distress ENMT: external ear and nose normal, oropharynx normal Respiratory: normal respiratory effort, lungs clear to auscultation Cardiovascular: RRR, no murmur, no edema Gastrointestinal (Abdomen): normal bowel sounds, soft, nontender, no hepatosplenomegaly Musculoskeletal: no cyanosis or clubbing, extremities motor strength 5/5 Skin: no rashes, warm and dry Neurologic: moves all extremities and awake; not confused Psychiatric: A+Ox3, euthymic affect Discharge Exam General: 78 yo female laying in bed, NAD, eating crackers wanting to go home tonight if possible HEENT : head atraumatic, normocephalic, mm improved, trachea midline Resp: even/unlabored, slightly diminished in the bases but no wheezing/rales, on room air CV: RRR, no significant m/r/g, trace pedal edema but calves nontender, pulses present GI: +BS, slight distension but soft/no overt tenderness, no guarding/rebound, prior surgical sites from appendectomy noted : no ness MSK/neuro: no focal deficits, no slurred speech/confusion, answering questions appropriately Psych: AOx3, cooperative with exam Discharge Plan Discharge Items Patient Disposition: Home - Self-Care Reason For Visit: DUODENITIS/MESENTERITIS Discharge Diagnosis: Abdominal pain, possible gall stone disease Goals: You have been hospitalized for an acute medical problem. During your stay at [facility], we have made an effort to correct the problem that brought you to the hospital while keeping you as comfortable as possible. Medications were used to bring your condition under control and your discharge instructions will include directions for any medications you should take after leaving the hospital. Please make sure you see your Primary Care Provider as part of your follow up plan. Activity: As commented below Non-emergency contact: Primary Care Provider Call non-emergency contact if: you have any medication questions, your symptoms worsen, your pain is worsening, your pain is unusual for you and you have a fever Follow-up/Referrals: Mac Bustos [Primary Care Provider] - Zuly Ventura DO [Resident] - 03/09/24 10:40 am Diet: Heart Healthy and Low Fat Addtl Attending Provider Instructions: You have been hospitalized for abdominal pain and imaging was concerning for inflammation in the duodenum (intestines past the stomach) and GI was consulted and you underwent EGD which was negative and GI suspects this could be related to underlying gallstones as discussed. Liver tests were NEGATIVE, and does not appear to be currently acute given resolution in pain particularly in the right upper quadrant. HOWEVER, if this occurs should return to ER for evaluation. As discussed, can consider discussing test called a HIDA scan which can tell us more information about the pumping function of the gallbladder and if reduced can clue us into underlying disease and possible need for removal. Magnesium replacement was provided with improvement and you can continue over t he counter once daily if not eating/drinking well but typically most people get enough in the diet. Please continue diet as tolerated and avoid excessive fatty/fried foods during this time that could worsen the issue. We have sent medication for once daily pepcid for reflux in the meantime. Please follow up with primary care in the next 7-10 days after discharge. Recommend you get repeat labs with primary care in the next 1-2 weeks to ensure sodium level back to normal. Return to ER with any increased pain, fever, vomiting or for any other symptoms concerning for you. It has been a pleasure being a part of the medical team providing for you while you have been in the hospital. Take care! Pending Studies at Discharge: No Stand-Alone Forms: My [facility] [employer], Smoking Cessation Medications and DC Order Prescriptions: New famotidine [Pepcid] 20 mg tablet 20 mg PO DAILY Qty: 30 0RF Continued vitamin B complex Tablet 1 tab PO QAM cholecalciferol (vitamin D3) [Vitamin D3] 2,000 unit Capsule 2,000 unit PO QAM calcium polycarbophil [FiberCon] 625 mg Tablet 1 tab PO QAM Discharge Orders: Discharge Order (Routine); Ordered 02/27/24 Ordered By: Audra Mark/Other Patient Handouts: What Is a Hiatal Hernia? Admission Data Admit Date/Time: 02/26/24 19:22 Attending Provider: Thaddeus Jeffery Admit Provider: Jon Steiner Primary Care Provider: Mac Bustos Other Providers: Jon Steiner; Anup Lemos Other Interventions: Discharge Summary Assessment (RN) Last Done: 02/27/24 16:57 Hospital Stay Data Consultations 02/26/24 17:24 ED Decision to Admit Stat 02/26/24 21:47 Consult Gastroenterology Routine Procedures Performed Operation Date: 02/27/24 17:10 Actual Procedures p Esophagogastroduodenoscopy - Anup Lemos MD Impression: - Z-line irregular, 36 cm from the incisors. - Normal esophagus. - There is no evidence of esophagitis or Oliveira's mucosa. - 2 cm hiatal hernia. - Otherwise the stomach was normal. There was no evidence of gastric ulcer or, tumor or gastritis. - Normal examined duodenum. - The duodenum was normal, there was no evidence of duodenal ulcer. - No specimens collected. Recommendation: - Observe patient's clinical course. Diagnostic Imagining Performed Abdomen/Pelvis CT 02/26/24 10:[address] WITH IV CONTRAST CT DOSE: 1380.75 mGy.cm HISTORY: Acute onset abdominal pain with nausea and vomiting abd pain, n/v TECHNIQUE: Multiaxial CT images of the abdomen and pelvis were performed following the IV administration of 93 cc of Optiray, A dose lowering technique was utilized adhering to the principles of ALARA. COMPARISON STUDY: CT abdomen and pelvis 12/15/2023; chest CT 04/29/2023 FINDINGS: There are a few solid nodules noted within the right lung base measuring up to 9 mm which are unchanged from prior and of low clinical suspicion. No free air. Unremarkable spleen, pancreas and adrenal glands. Mildly contracted gallbladder with cholelithiasis. The liver is within normal limits. Patency of the hepatic and portal veins. Unremarkable kidneys. No hydr onephrosis. Partially decompressed urinary bladder. Atherosclerosis of the aorta without aneurysm. No lymphadenopathy. Small hiatal hernia with distal esophageal wall thickening. There is additional mild circumferential wall thickening involving the third portion of the duodenum. Moderate inflammatory stranding is present within the mesenteric root centered around the patent superior mesenteric artery and third portion of the duodenum. Colonic diverticulosis. Anastomotic suture noted within the abdominal right lower quadrant. There is a 3.4 cm tubular structure within the abdominal right lower quadrant adjacent to the proximal ascending colon on image 210 series 3 measuring 8 mm transversely and appears to be fluid-filled. Unremarkable soft tissues. Bilateral hip arthroplasties. No acute fracture. IMPRESSION: 1. Nonspecific moderate inflammatory stranding within the mesenteric root centered around the patent superior mesenteric artery and third portion duodenum. Differential considerations include a nonspecific duodenitis or mesenteritis. Acute pancreatitis considered less likely. 2. Cholelithiasis without acute cholecystitis. 3. There is a 3 cm tubular fluid-filled structure within the abdominal right lower quadrant which appears similar to the abnormal appendix described on the 12/15/2023 exam. The patient has since undergone an appendectomy. Differential considerations include residual appendix versus small postoperative fluid collection. No drainable fluid collections are present. 4. No bowel obstruction or pneumoperitoneum. ACT 112: Negative or not required by law. The above report was generated using voice recognition software. It may contain grammatical, syntax or spelling errors. Electronically signed by: Leonel Lo M.D. 02/26/2024 1:03 PM Pending Results Patient Have Any Pending Studies at Discharge: No Discharge Instructions Given to Patient (Per Discharging Provider) You have been hospitalized for abdominal pain and imaging was concerning for inflammation in the duodenum (intestines past the stomach) and GI was consulted and you underwent EGD which was negative and GI suspects this could be related to underlying gallstones as discussed. Liver tests were NEGATIVE, and does not appear to be currently acute given resolution in pain particularly in the right upper quadrant. HOWEVER, if this occurs should return to ER for evaluation. As discussed, can consider discussing test called a HIDA scan which can tell us more information about the pumping function of the gallbladder and if reduced can clue us into underlying disease and possible need for removal. Magnesium replacement was provided with improvement and you can continue over the counter once daily if not eating/drinking well but typically most people get enough in the diet. Please continue diet as tolerated and avoid excessive fatty/fried foods during this time that could worsen the issue. We have sent medication for once daily pepcid for reflux in the meantime. Please follow up with primary care in the next 7-10 days after discharge. Recommend you get repeat labs with primary care in the next 1-2 weeks to ensure sodium level back to normal. Return to ER with any increased pain, fever, vomiting or for any other symptoms concerning for you. It has been a pleasure being a part of the medical team providing for you while you have been in the hospital. Take care! Supervising Physician Co-Signing Physician Notes the patient was not seen by me. The chart was reviewed. case discussed with AR Bradley. Agree with assessment and plan. Total Time Total Time Spent Total Time Spent (In Minutes): 45 Coding Level of Care Code 71055 INP/OBS DISCH >30 MIN Diagnoses Sclerosing mesenteritis K65.[address] of the abdomen R93.5 Hyponatremia E87.1 Hypomagnesemia E83.42
[2024-02-27 17:01] VITALS: PULSE 61
[2024-02-27] MEDS ORDERED: ENOXAPARIN INJ 40 MG/0.4 ML SYR SQ SCH (21:00)
[2024-02-27] MEDS ORDERED: UREA (UREA-NA) 15 GM PACK PO SCH (21:00)
== END 2024-02-27 18:41 | disposition home or self-care (01) ==
LOC: ED 09:31 → 3W 09:31 → SUATTDRO 19:22 → 3W 21:30